=== PATIENT | female | born 1960 | race Caucasian/White ===

== ENCOUNTER 2023-03-16 17:02 | Emergency (ER) | payer MEDICARE, MEDICAID, SELFPAY ==
--- NOTE | ~2023-03-16 | CT_ITS ---
EXAMINATION: CT CHEST WITHOUT CONTRAST CLINICAL INFORMATION: History of tobacco abuse. Unexplained weight loss. COMPARISON: None available. TECHNIQUE: Multidetector volumetric CT imaging of the chest was done. Axial MIP volume rendering provided. Sagittal and coronal reformatted images were obtained. This CT examination was performed using dose optimization techniques as appropriate, variously including the following: *Automated exposure control *Adjustment of mA and/or kV according to patient size (this includes techniques or standardized protocols for targeted exams where dose is matched to indication/reason for exam; i.e. extremities or head) *Use of iterative reconstruction technique DLP: 112 mGy-cm FINDINGS: LUNGS: Moderate to marked centrilobular emphysema. 4 mm nodule right upper lobe on image 185 of series 9. 3 mm subpleural nodule left upper lobe on image 176 of series 9. 1.3 x 1.4 cm circumscribed nodule in the left lower lobe on image 386 of series 9. There is intralesional fat possibly representing hamartoma. No focal consolidation. Central airways are patent. MEDIASTINUM: Imaged thyroid gland is heterogeneous. No bulky mediastinal or hilar. Ascending thoracic aorta measures 3.2 x 3.3 cm transaxially. Heart size is normal. No pericardial effusion. CORONARY ARTERY CALCIFICATION: Mild. PLEURA: There is no pleural effusion. No pleural mass or thickening. AXILLA: No lymphadenopathy. UPPER ABDOMEN: Nonobstructing bilateral renal calculi. OSSEOUS STRUCTURES: No destructive bone lesions. CT/CT chest wo IV con IMPRESSION: Few pulmonary nodules measuring up to 4 mm. Follow-up chest CT in 12 months should be considered. 1.3 x 1.4 cm pulmonary nodule in the left lower lobe containing fat possibly representing a hamartoma. Nonobstructing bilateral renal calculi.
[2023-03-16 17:07] VITALS: BP 140/100; PULSE 120; RESP 16; TEMP 36.9; O2SAT 98; BMI 18.3
--- NOTE | 2023-03-16 17:09 | ED_ITS ---
HPI - General Adult General Chief complaint: Psychiatric Symptoms Stated complaint: physch evaluation Time Seen by Provider: 03/16/23 17:21 Source: patient Mode of arrival: ambulatory Limitations: no limitations History of Present Illness HPI narrative: Patient is a 62-year-old female who presents emergency department with her brother for evaluation. She reports that her brother came to her home today and she was expressing her frustrations. She reports ?I feel sick and my head? she says this repetitively, stating that she ?can not deal with the banging anymore? referring to the neighbor's above her evidently banging on the ceiling constantly throughout the day. It seems as though she is exhausted of this. When asked she states she has not particularly having any headache, discomfort, or otherwise concerning symptoms. She does report a mental health history, having been ?committed in the past, evidently in the 1980s. Her brother expressed concern that she has not eating not taking care of herself. When asked patient states she has been eating only soft foods because her bottom dentures recently broke and she does not have an appointment for their repair until another 2 weeks. She denies suicidal or homicidal ideations. Related Data Home Medications Medication Instructions Recorded Confirmed No Known Home Meds 03/18/23 03/18/23 Allergies Allergy/AdvReac Type Severity Reaction Status Date / Time No Known Allergies Allergy Verified 03/16/23 17:15 Review of Systems 2 Review of Systems: Yes all other systems are reviewed and are negative PMF Past Medical History Attestation statement: The following information was validated with the patient. Source: old records reviewed Social History Social History Smoked in Last 30 Days: Yes Use of substances other than those prescribed or required for medical reasons: No Advance Directives: No Advance Directives Information Provided: No Healthcare Proxy: No Guardian: No Patient : No Physical Exam ED Vital Signs: Vital Signs - 24 hr 03/20/23 06:37 Temperature 98.0 F Pulse Rate 77 Respiratory Rate 17 Blood Pressure 90/65 Pulse Oximetry 98 Oxygen Delivery Method Room Air BMI result Body Mass Index 18.3 Appearance: Alert.?Oriented to person, place and time. Frail older woman. No acute distress.?Normal affect. Eyes: Pupils equal, round and reactive to light.? ENT: Pharynx normal.?? Neck: Normal inspection.? Neck supple.?? CVS: Heart sounds normal. Normal heart rate and rhythm.? Pulses normal.?? Respiratory: No respiratory distress.? Lung sounds clear to auscultation bilaterally?? Abdomen: Soft and non-tender. Normoactive bowel sounds. No pulsatile mass.?? Skin: Skin warm and dry.? Normal skin color.? Normal skin turgor.?? Extremities: No lower extremity edema.? No calf ttp? Neuro: Moves all extremities spontaneously. Sensation intact bilaterally. CN II- XII intact. No focal neuro deficits. Ambulates with normal steady gait. Course Course Course Narrative: RME- 62 year old female presents for evaluation of fell sick in my head. She is a very poor historian. She is not having any headaches. She is not depressed or suicidal. She repeatedly states that she doesn't want to go back home because I can't deal with the banging from all the people above my apartment. Per the patient's brother, the patient is not eating, not taking care of herself. Plan for medical workup and likely care team evaluation Reevaluation(s) Reevaluation #1: CBC is without leukocytosis or anemia, overall unremarkable CMP. Urinalysis without compelling evidence for infection. Toxicology negative. Placed in physician observation so that care team evaluation can consumed determination as to whether inpatient psychiatric services are required at this time. Calm and cooperative. Vital signs stable. Reevaluation #2: Patient was seen by care team and psychiatric nurse practitioner Allison Freitas- with question if patient has capacity to refuse treatment. I did reconsult Psychiatry to make a formal capacity judgment on this patient. Care team also requested case management evaluation to determine possible outpatient services. Time: 18:39 Reevaluation #3: Continue physician observation, no acute events overnight Time: 07:30 Consultations Consultation #1: VSS, no issues reported by nursing overnight, psych input was reviewed and appreciated, waiting for case management for possible placement today, question of patient is have the capacity to refuse treatment to be determined by psych. Time: 07:23 Medications Administered Generic Name Dose Route Start Last Admin Trade Name Freq PRN Reason Stop Dose Admin Cefuroxime Axetil 250 mg 03/17/23 21:00 03/19/23 21:44 Cefuroxime Axetil 250 Mg Tablet PO 03/22/23 09:01 250 mg BID JAYLENE Administration Discontinued Medications Generic Name Dose Route Start Last Admin Trade Name Freq PRN Reason Stop Dose Admin Polyethylene Glycol 17 gm 03/17/23 07:31 03/17/23 13:48 Polyethylene Glycol 3350 17 Gm Powd.Pack PO 03/17/23 07:32 17 gm ONCE ONE Administration Medical Decision Making Medical Decision Making [facility] Narrative: Patient is a 62-year-old female who presents to the emergency department expressing frustration and anger neighbor's upstairs from her producing constant banging on her ceiling, she does seem under significant distress regarding this. She denies any SI/HI, but she is hyper fixated on this. Further express concerns that she has not eating and hearing for herself, she is a frail older woman, she states she has been eating last/soft since dentures ibuprofen recently she does not feel as though she is intentionally depriving herself from food.. Enter obtain basic labs for medical clearance, and will refer patient to CARE team for evaluation Differential Diagnosis Differential Diagnoses: The differential diagnosis associated with the presentation includes (Anxiety, depression, anorexia) Admission/Observation Consideration of admission/observation: Escalation of care including admission/observation considered (See narrative above) Lab Data [facility] Lab Attestation statement: I reviewed the patient's lab results. (See course narrative) 03/16/23 18:01 03/16/23 18:01 Labs: Lab Results 03/16/23 03/16/23 03/17/23 Range/Units 17:52 18:01 19:02 WBC 9.7 (4.8-10.8) X10*3/uL RBC 5.08 (4.20-5.50) X10*6/uL Hgb 15.7 (12.0-16.0) g/dl Hct 46.6 (37.0-47.0) % MCV 91.7 (80.0-98.0) fL MCH 30.9 (27.0-33.0) pg MCHC 33.7 (31.0-35.0) g/dl RDW 12.8 (11.0-16.0) % Plt Count 359 (160-400) X10*3/uL MPV 8.5 L (9.4-12.3) fL Immature Gran % (Auto) 0.5 H (0.0-0.4) % Neut % (Auto) 61.6 (45-73) % Lymph % (Auto) 28.9 (20-40) % [place] % (Auto) 7.6 (2-11) % Eos % (Auto) 0.9 (0-4) % Baso % (Auto) 0.5 (0-2) % Lymph # (Auto) 2.8 (1.2-4.9) X10*3/uL [place] # (Auto) 0.7 (0.1-1.2) X10*3/uL Eos # (Auto) 0.1 (0.0-0.4) X10*3/uL Baso # (Auto) 0.1 (0.0-0.2) X10*3/uL Abs Immat Gran (auto) 0.05 H (0.00-0.03) X10*3/uL Absolute Neuts (auto) 6.0 (2.0-8.3) x10*3/uL Absolute Nucleated RBC 0.000 (0.0-0.012) X10*3/uL Nucleated RBC % (auto) 0.0 (0.0-0.2) /100WBC Sodium 139 (135-145) mmol/L Potassium 4.3 (3.3-5.1) mmol/L Chloride 103 (96-108) mmol/L Carbon Dioxide 26 (22-29) mmol/L Anion Gap 14 (12-20) BUN 17 H (9-16) mg/dL Creatinine 0.75 (0.5-1.4) mg/dL Estim Creat Clear Calc 54.9 Estimated GFR > 60 Random Glucose 103 (60-115) mg/dL Estimat Average Glucose 108 mg/dL Hemoglobin A1c % 5.4 (<6.0) % Calcium 9.9 (8.4-10.2) mg/dL Total Bilirubin 0.3 (0.0-1.0) mg/dL AST 15 (5-31) U/L ALT 10 (0-31) U/L Alkaline Phosphatase 84 (39-117) U/L Total Protein 8.1 H (6.5-8.0) g/dL Albumin 4.7 (3.5-5.0) g/dL Vitamin B12 306 (200-900) pg/mL Folate 5.5 (> or = 4.0) ng/mL TSH 0.99 (0.32-4.0) uIU/mL Urine Color Yellow Urine Appearance Cloudy Urine pH 5.5 (5.0-9.0) Ur Specific [place] 1.025 (1.005-1.025) Urine Protein Trace (Neg-Trace) mg/dL Urine Glucose (UA) 250 H (Negative) mg/dL Urine Ketones Negative (Negative) mg/dL Urine Blood Trace H (Negative) Urine Nitrite Negative (Negative) Ur Leukocyte Esterase Small (1+) H (Negative) Urine RBC 3-5 H (0-2) /HPF Urine WBC 11-20 H (0-5) /HPF Ur Squamous Epith Cells 6-10 (0-2) /HPF Urine Bacteria None Seen (None Seen) Hyaline Casts 0-2 (0-2) /LPF Salicylates < 5.0 L (15-30) mg/dL Urine Opiates Screen Not Detected (Not Detect) Urine Fentanyl Screen Not Detected (Not Detect) Acetaminophen < 3 (<30) mcg/mL Ur Barbiturates Screen Not Detected (Not Detect) Ur Phencyclidine Scrn Not Detected (Not Detect) Ur Amphetamines Screen Not Detected (Not Detect) U Benzodiazepines Scrn Not Detected (Not Detect) Urine Cocaine Screen Not Detected (Not Detect) U Marijuana (THC) Screen Not Detected (Not Detect) Ethyl Alcohol < 10 mg/dL COVID-19 (ANGELA) Negative (Negative) COVID-19 Clin Com See Note Independent Historian Clinical information obtained from an independent historian. History obtained from or confirmed by: Other (Brother who confirms history) Discharge Plan Discharge Clinical Impression: Depression, Acute anxiety Patient Disposition: Still a Patient Prescriptions: No Action No Known Home Meds Interventions: [place]-Suicide Risk Severity Scale Last Done: 03/19/23 14:32
--- NOTE | 2023-03-16 17:48 | PC.NURSE ---
PT arrived to POD, changed over, urine provided, lab draw to follow. JOHN at bedside. Plan of care ongoing.
[2023-03-16 18:09] LABS: MANUAL DIFF FLAG NO
[2023-03-16 18:10] VITALS: BP 109/87; PULSE 93; RESP 13; TEMP 36.6; O2SAT 96
[2023-03-16 18:18] LABS: Basophils Absolute Auto 0.1 X10*3/uL (0.0-0.2); Basophils Percent Auto 0.5 % (0-2); Eosinophils Absolute Auto 0.1 X10*3/uL (0.0-0.4); Eosinophils Percent Auto 0.9 % (0-4); Hematocrit 46.6 % (37.0-47.0); Hemoglobin 15.7 g/dl (12.0-16.0); Imm Gran Abs Auto 0.05 X10*3/uL (0.00-0.03); Imm Gran Pct Auto 0.5 % (0.0-0.4); Lymphocytes Absolute Auto 2.8 X10*3/uL (1.2-4.9); Lymphocytes Percent Auto 28.9 % (20-40); Mean Corpuscular HGB Conc 33.7 g/dl (31.0-35.0); Mean Corpuscular Hemoglobin 30.9 pg (27.0-33.0); Mean Corpuscular Volume 91.7 fL (80.0-98.0); Mean Platelet Volume 8.5 fL (9.4-12.3); Monocytes Absolute Auto 0.7 X10*3/uL (0.1-1.2); Monocytes Percent Auto 7.6 % (2-11); Neutrophils Percent Auto 61.6 % (45-73); Platelet Count 359 X10*3/uL (160-400); Red Blood Count 5.08 X10*6/uL (4.20-5.50); Red Cell Distribution Width 12.8 % (11.0-16.0); White Blood Count 9.7 X10*3/uL (4.8-10.8)
[2023-03-16 18:21] LABS: Appearance Urine Cloudy; Bacteria Urine None Seen (None Seen); Color Urine Yellow; Glucose Urine UA 250 mg/dL (Negative); Hyaline Casts Urine 0-2 /LPF (0-2); Leukocyte Esterase Urine Small (1+) (Negative); Nitrite Urine Negative (Negative); PH 5.5 (5.0-9.0); Specific Gravity - Urine 1.025 (1.005-1.025); UACC Culture Trigger YES; UMIC TRIGGER UACC YES; Urine Blood Trace (Negative); Urine Ketones Negative (Negative); Urine Protein Trace mg/dL (Neg-Trace)
[2023-03-16 18:22] LABS: Amphetamine Screen Urine Not Detected (Not Detect); Barbiturates, Urine Not Detected (Not Detect); Benzodiazepines Screen Urine Not Detected (Not Detect); Cannabinoid Screen Urine Not Detected (Not Detect); Cocaine Screen Urine Not Detected (Not Detect); Fentanyl, urine Not Detected (Not Detect); Opiate Screen Urine Not Detected (Not Detect); Phencyclidine Screen Urine Not Detected (Not Detect)
[2023-03-16 18:31] LABS: Acetaminophen LAB < 3 mcg/mL (<30); Alanine Aminotransferase 10 U/L (0-31); Albumin Level 4.7 g/dL (3.5-5.0); Alkaline Phosphatase 84 U/L (39-117); Anion Gap 14 (12-20); Aspartate Amino Transferase 15 U/L (5-31); Bilirubin Total 0.3 mg/dL (0.0-1.0); Blood Urea Nitrogen 17 mg/dL (9-16); Calcium 9.9 mg/dL (8.4-10.2); Carbon Dioxide 26 mmol/L (22-29); Chloride 103 mmol/L (96-108); Creatinine Clr Calc Pharmacy 54.9; Estimated Glomerular Filt Rate > 60; Ethanol < 10 mg/dL; Glucose Random 103 mg/dL (60-115); Potassium 4.3 mmol/L (3.3-5.1); Salicylate < 5.0 mg/dL (15-30); Sodium 139 mmol/L (135-145); Total Protein 8.1 g/dL (6.5-8.0)
[2023-03-16 18:41] LABS: COVID-19 Test Negative (Negative); IDNOW Serial# 08D9AD1C
--- NOTE | 2023-03-16 19:09 | PC.NURSE ---
patient appears to remain at rest at present respirations are even and unlabored patient appears in no distress
--- NOTE | 2023-03-16 22:33 | MHC.CARE ---
Pt's brother called (Toi; [phone]) and reports that he brought her to [facility] out of concern over her weight loss. He reports that Pt is normally taken care of by her sister, Sugey, however Sugey was recently diagnosed with cancer and is undergoing treatment. Toi recently moved from [place] to help out with the Pt. He reports that Pt was dianoised with Schizophrenia about 40 years ago when she was inpatient at a hospital in [place]. He reports that Pt does not take medications and has no risk hx or prior attempts and does not use substances or have a hx of use. He reports that she has seemed depressed recently.
--- NOTE | 2023-03-17 | ECG_ITS ---
Test Reason : QT INTERVAL Blood Pressure : / mmHG Vent. Rate : 057 BPM Atrial Rate : 057 BPM P-R Int : 136 ms QRS Dur : 068 ms QT Int : 434 ms P-R-T Axes : 083 058 084 degrees QTc Int : 422 ms Sinus bradycardia Low voltage QRS Septal infarct , age undetermined Abnormal ECG No previous ECGs available Referred By: Allison Freitas Electronically Signed By:BJ FRIAS MD
[2023-03-17 06:02] VITALS: BP 96/69; PULSE 84; RESP 15; TEMP 37.1; O2SAT 98
--- NOTE | 2023-03-17 06:24 | PC.NURSE ---
PT UP TO BR. NO C/O
--- NOTE | 2023-03-17 08:13 | PC.NURSE ---
CARE team at bedside.
--- NOTE | 2023-03-17 08:52 | MHC.CARE ---
Pt's brother, Luis, reports he and his sister Maira are questioning patient's ability to care for herself fully and would like psychiatry to meet with patient. Consult for psychiatry created.
[2023-03-17] MEDS: polyethylene glycoL 3350 17 GM POWD.PACK PO (13:48)
--- NOTE | 2023-03-17 15:08 | PM.PSYCN ---
History of Present Illness Date of Service: 03/17/2023 Chief Complaint: paranoia Reason for Consult: paranoia Discussed with referring provider: Yes Sources of Information: patient interviewed, chart reviewed and crisis/core team assessment reviewed HPI Narrative: Ms. Witt is a 62 year-old woman with hx of schizophrenia. Pt was brought by brother who was concern about pt's weight loss and paranoia. Pt has reported that upstairs neighbors are banging the wall, making sounds and she worries that they are making her sick. In the ED, cbc wnl, CMP with no electrolytes abnormalities. BUN 17, Cr 0.74, creatinine clearance 54.9. UA with glucose, trace of blood, leukocytes, RBC and WBC. Head CT not completed. Pt appears much older than her age. She also presents as malnourished. She reports she has had constipation but does not know since when. This race and sports book writer asked if we could do KUB r/o obstruction but also to assess severity as pt appears unreliable general assignment reporter but she declines. She reports she is not sure she can trust neighbors and believes they are making her sick in physical way, not limited by effects of loud sounds. She reports maybe her skin or her head has been affected by it. She denies SI/HI. When asked if she thinks she needs any help, she states only a cigarette and I can go home. She does not appear concern as her brother about weight loss. She has been mostly in her room. Past Psychiatric History: Inpt: several years at [facility] OP: none Past medication trials: unknown Diagnostics Vital Signs (24Hr): Vital Signs - 24 hr 03/16/23 17:07 03/16/23 18:10 03/17/23 06:02 Temperature 98.5 F 97.9 F 98.8 F Pulse Rate 120 H 93 84 Respiratory Rate 16 13 15 Blood Pressure 140/100 H 109/87 96/69 Pulse Oximetry 98 96 98 Oxygen Delivery Method Room Air Room Air Room Air BMI result Body Mass Index 18.3 Labs 03/16/23 18:01 03/16/23 18:01 Labs: Laboratory Results - last 48 hr 03/16/23 03/16/23 17:52 18:01 WBC 9.7 RBC 5.08 Hgb 15.7 Hct 46.6 MCV 91.7 MCH 30.9 MCHC 33.7 RDW 12.8 Plt Count 359 MPV 8.5 L Immature Gran % (Auto) 0.5 H Neut % (Auto) 61.6 Lymph % (Auto) 28.9 [place] % (Auto) 7.6 Eos % (Auto) 0.9 Baso % (Auto) 0.5 Lymph # (Auto) 2.8 [place] # (Auto) 0.7 Eos # (Auto) 0.1 Baso # (Auto) 0.1 Abs Immat Gran (auto) 0.05 H Absolute Neuts (auto) 6.0 Absolute Nucleated RBC 0.000 Nucleated RBC % (auto) 0.0 Sodium 139 Potassium 4.3 Chloride 103 Carbon Dioxide 26 Anion Gap 14 BUN 17 H Creatinine 0.75 Estim Creat Clear Calc 54.9 Estimated GFR > 60 Random Glucose 103 Calcium 9.9 Total Bilirubin 0.3 AST 15 ALT 10 Alkaline Phosphatase 84 Total Protein 8.1 H Albumin 4.7 Urine Color Yellow Urine Appearance Cloudy Urine pH 5.5 Ur Specific [place] 1.025 Urine Protein Trace Urine Glucose (UA) 250 H Urine Ketones Negative Urine Blood Trace H Urine Nitrite Negative Ur Leukocyte Esterase Small (1+) H Urine RBC 3-5 H Urine WBC 11-20 H Ur Squamous Epith Cells 6-10 Urine Bacteria None Seen Hyaline Casts 0-2 Salicylates < 5.0 L Urine Opiates Screen Not Detected Urine Fentanyl Screen Not Detected Acetaminophen < 3 Ur Barbiturates Screen Not Detected Ur Phencyclidine Scrn Not Detected Ur Amphetamines Screen Not Detected U Benzodiazepines Scrn Not Detected Urine Cocaine Screen Not Detected U Marijuana (THC) Screen Not Detected Ethyl Alcohol < 10 COVID-19 (ANGELA) Negative COVID-19 Clin Com See Note Mental Status Exam Mental Status Exam Narrative: Appearance: unkempt, much older than stated age,malnourished, in NAD Behavior: superficially cooperative Speech: mostly clear, mild delayed in responses, spontaneous TP: goal oriented- wanting to go home TC: wanting a cigaret and wanting to go home Mood: okay Affect: constricted, but congruent SI: denies HI: denies VH/AH: AH of neighbors Delusions: some paranoid delusions Insight/judgment: impaired x 2. Memory/cog: alert, oriented to place, not formally tested, may benefit from MOCA and ACL Medications Allergies Allergies Allergy/AdvReac Type Severity Reaction Status Date / Time No Known Allergies Allergy Verified 03/16/23 17:15 Assessment & Plan Assessment & Plan (1) Schizophrenia: Status: Acute Code(s): F20.9 - Schizophrenia, unspecified Plan Ms. Witt is a 62 year-old woman with hx of schizophrenia who was brought in by brother who was concern in terms of weight loss and paranoia. Pt reports some mistrust about her neighrbors and believes that they banging the wall has caused internal damage to herself. She reports constipation, but due to fact that she is a poor historian, this race and sports book writer asked if we could do KUB which she declines. UA seems to be suggestive of UTI. Pt with limited insight into concern regarding her weight loss. Pending collateral information from brother to get better sense as to pt's ability to care for herself. I would suggest to assess pt's ability to care for herself- including but not limited MOCA, ACL, further clarification of current living situation. Pt does not appear to have capacity to make medical decisions. Total time managing care of this patient today ____ minutes. Patient educated on: diagnosis Informed Consent: understands
--- NOTE | 2023-03-17 18:36 | MHC.CARE ---
Box Spinner spoke with ED Attending Dr. Parks to request CM Consult. Consult placed
[2023-03-17 19:41] LABS: TSH reflex Free T4 0.99 uIU/mL (0.32-4.0)
[2023-03-17 19:55] LABS: Folate 5.5 ng/mL (> or = 4.0); Vitamin B12 306 pg/mL (200-900)
--- NOTE | 2023-03-17 21:23 | MHC.CM.ED ---
Addendum entered by Michelle Montoya 03/17/23 22:28: Brother, Luis states that patient always locks her doors and smokes outside. Addendum entered by Michelle Montoya 03/17/23 22:15: CM spoke with brother, Luis. He tells CM that he is very concerned that his sister is not eating, has little food in her refrigerator and basically canned goods. She refuses to have a microwave or TV, but seems okay with those choices. States she misses her cat and their other brother, who passed in 2014 and who his sister was very close with. Luis tells CM that his sister has been very withdrawn over that past 4 months or so. The patient has withdrawn from family visiting and family dinners. He also thinks his sister Maira's illness is affecting his sister. Luis tells CM that his sister is safe at home. Has a neighbor who checks in on her. Luis tells CM that he and his sister, Maira, have always paid the bills for the patient. His major concern is her weight loss. Both Maira and Luis are aware of the capacity review with psych and with the pending MOCA and ACL. They are in agreement that if their sister goes home, they will help her, but she needs more services: PCP, [facility], [facility] and outpatient psych services. CM will wait for repeat capacity, MOCA and ACL before arranging any home services. CM expects that patient will remain in ED over the weekend atleast. Addendum entered by Michelle Montoya 03/17/23 22:04: CM spoke with sister Maira. Maira tells CM that her sister lived with her mother until her mother's in 2001. Since then, Gemma has been living in her current address with family assistance. Maira tells CM that her sister was diagnosed with schizophrenia. She takes no medications, and does not have a PCP. Maira confirms her sister's intake information. Also shares that she has no services or psych services. Maira shared that she has been diagnosed with cancer and is undergoing another biospy next week. She thinks this is affecting her sister. Also, her sister's cat about a year ago, and it was a big loss for her/ Maira thinks her sister is safe at home, but is concerned that she is not eating properly. State her sister only goes to [employer], so her food intake/choices are poor. Addendum entered by Michelle Montoya 03/17/23 21:58: Brother, Luis ([phone]) both help her. Pt does not take any medications and does not have a PCP or put patient psych services. Pt feels safe at home. States she can cook and can walk to grocery store. Pt is aware that additional testing will be done to see how well she can care for herself and live independently. Discussed HCP with patient. She would like her sister. CM will wait to hear if patient has capacity to make decisions. Permission given to speak with both Maira and with Luis. Original Note: CM spoke with Dr. Parks with regards to this patient. MD has re-consulted psych for capacity. Also ordered MOCA and ACL from OT. CM met with patient in [facility]. Pt tells CM that the banging noise from her neighbors is making her sick. Pt state she lives alone, and has no services. States she can walk to store for food and can cook. Does not drive. She tells CM that her sister, Maira ([phone])
[2023-03-17] MEDS: cefuroxime axetiL 250 MG TABLET PO (21:56)
[2023-03-17 21:57] VITALS: BP 93/63; PULSE 76; RESP 17; TEMP 36.6; O2SAT 97
[2023-03-18 04:01] LABS: Estimated Average Glucose 108 mg/dL; Hemoglobin A1c % 5.4 % (<6.0)
[2023-03-18] MEDS: cefuroxime axetiL 250 MG TABLET PO ×2 (09:14→20:29)
--- NOTE | 2023-03-18 18:25 | PC.NURSE ---
Gemma was OOB this morning and engaging with staff. She took a shower and is ambulating well. Appetite is good. No behavioral concerns. Gemma denies SI/HI/AVH.
--- NOTE | 2023-03-18 19:18 | PC.NURSE ---
patient appears to remain at rest at present respirations are even and unlabored patient appears in no distress.
[2023-03-19 06:41] VITALS: BP 97/70; PULSE 86; RESP 16; TEMP 36.5; O2SAT 94
[2023-03-19] MEDS: cefuroxime axetiL 250 MG TABLET PO ×2 (08:26→21:44)
--- NOTE | 2023-03-19 16:53 | PC.NURSE ---
Gemma in her bed resting quietly. Adherent with her AM antibiotic. No behavioral concerns. Ambulates with a steady gait. Appetite fair.
[2023-03-20 06:37] VITALS: BP 90/65; PULSE 77; RESP 17; TEMP 36.7; O2SAT 98
[2023-03-20] MEDS: cefuroxime axetiL 250 MG TABLET PO ×2 (10:04→20:53)
[2023-03-20 11:37] VITALS: BP 105/72; PULSE 80; RESP 20; TEMP 37.1; O2SAT 99
--- NOTE | 2023-03-20 14:40 | MHC.CM.ED ---
Patient remains in ER BH Pod. MOCA completed: . Allison, case briefer aware. Continue to monitor for d/c needs.
--- NOTE | 2023-03-20 15:05 | PC.NURSE ---
Pt has had uneventful day thus far, calm and cooperative, calling her sister and brother. Report given to overflow
[2023-03-20 15:41] VITALS: BP 118/76; PULSE 88; RESP 16; TEMP 36.4; O2SAT 97
--- NOTE | 2023-03-20 17:22 | PC.NURSE ---
Pt in room resting quietly, supper given, pt denies pain, vss.
[2023-03-20 20:12] VITALS: BP 100/73; PULSE 89; RESP 20; TEMP 36.4; O2SAT 97
--- NOTE | 2023-03-20 21:10 | PC.NURSE ---
Patient is resting in a hospital bed, calm and cooperative, VSS. Patient denies any pain. Patient medicated with Ceftin 250 mg PO, tolerating antibiotic tx without adverse reactions. Call wallace placed within patient's reach. Plan of care ongoing.
--- NOTE | 2023-03-20 22:20 | MHC.CM.ED ---
MOCA . CM Spoke with Idalia Veronica from CARE team about need to collaborate with them regarding patient outpatient psych needs at discharge. Will speak with Allison psychiatric tech 03/21 regarding assessment of capacity with MOCA of and possible medication needs for patient at discharge ? medications for depression/anxiety. Will then need to speak with family about ability to care for patient at home. Siblings have been caring for patient since 2001. Patient has been living independently with family supports. CM following for discharge needs.
[2023-03-21 05:26] VITALS: BP 100/72; PULSE 69; RESP 18; TEMP 36.9; O2SAT 99
[2023-03-21] MEDS: cefuroxime axetiL 250 MG TABLET PO ×2 (07:41→19:40)
--- NOTE | 2023-03-21 07:50 | PC.NURSE ---
Assumed care of this pt at 0700. Pt alert and oriented, she denies pain, vss, Breakfast given, med given as documented.
[2023-03-21 07:56] VITALS: BP 105/76; PULSE 80; RESP 14; TEMP 36.2; O2SAT 97
--- NOTE | 2023-03-21 08:27 | PHA.MEDREC ---
Pharmacy Consult ? Medication Reconciliation Pharmacy has completed the medication reconciliation with the patient. No claims present and patient confirms no medication use at home.
--- NOTE | 2023-03-21 12:02 | MHC.CM.ED ---
Addendum entered by Risa Vargas 03/21/23 13:28: Physical therapy is recommended home with services. Patient does not have a PCP. Home services will not be able to be arranged due to this. Short term rehab is necessary at this time in order to have patient be able to safely return home. Will need [facility] Level 2. T/W will submit for this. Original Note: Patient remains in ER overflow. Per Allison community associate, patient is cleared for d/c. Spoke with patient's brother, Luis, via telephone at [phone]. Luis is concerned about patient being weak and needing short term rehab. Physical therapy eval ordered and pending. Information on primary care providers and outpatient mental health follow up provided to Luis. Continue to monitor for d/c needs.
[2023-03-21 12:50] VITALS: BP 105/76; PULSE 80; O2SAT 97
--- NOTE | 2023-03-21 14:50 | MHC.CM.ED ---
Addendum entered by Risa Vargas 03/21/23 15:54: Received return telephone call from Luis. He will speak to patient about going to short term rehab. Original Note: Met with patient in regards to discharge planning. Patient is not sure she wants to go to STR. Patient also unwilling to sign HCP at this time. Attempted to update patient's brother, Luis, via telephone at [phone]. Left message requesting return telephone call.
--- NOTE | 2023-03-21 16:16 | PC.NURSE ---
Pt's brother and sister called to speak with her. She spoke briefly with her sister then hung up on her. She did not get on the phone to speak with her brother. Stated I don't feel like talking to him now maybe later . Pt resting quietly in her room at this time.
[2023-03-21 21:07] VITALS: BP 99/63; PULSE 90; RESP 18; TEMP 37; O2SAT 97
--- NOTE | 2023-03-21 22:08 | MHC.CM.ED ---
CM met with patient about 1630 tonight. PT is recommending home PT, but patient does not have a PCP, so it cannot be arranged. Brother would like her to go to STR. Referrals had been placed, with [facility] considering. Pt is adamant that she will not go to rehab. She wants to go home. States she walks fine. Pt also refused, politely to complete a HCP. CM spoke with patient about having some services at home. Pt is not really comfortable with having help in home. Pt may agree to [facility] with [facility]. Brother, Luis is aware that he would be contact acid plant operator helper. Also aware that she will be discharged home tomorrow. That a referral has been placed with [facility] (task) and that CM will give him a PCP list. Encouraged him to call for an appointment and to bring her. She has a dentist appointment on 03/27 to have her dentures repaired. Luis also aware that the CARE team will make a referral to [facility] tomorrow for outpatient psych services. Luis will be in about 9am tomorrow to try and convince his sister to go to STR, because he feels she is weak. CM explained that physical therapy did not recommend STR, but she cannot have home services d/t her lack of PCP. Luis understands that if his sister refuses STR, he cannot make her go. Luis is aware that she will be discharged home, unless he refuses to help her in the community with PCP, dentist, groceries and bill paying. Luis admits to CM that he will not refuse to care for her, but is a bit frustrated with her constant calling him. CM spoke with Luis about setting limits and remembering that his sister is mentally ill, but stable, and has been cared for by family for her entire life. CM will follow for discharge needs.
--- NOTE | 2023-03-22 01:21 | PC.NURSE ---
Took report from off-going RN at 2300 hours. Pt is a 62 y/o female who is here for ? failure to thrive, been here since Feb 13 from home. Pt is pleasant and cooperative with staff. No acute distress noted at shift change. Skin is W/P/D. Pt is independent with ambulation, uses the bathroom as desired. Vebalizes needs appropriately. Presently being treated with PO ceftine for a UTI. Prior to shift change, reported some symptoms of constipation, but declined any medications with RN. Independent with decision-making and plan is possible discharge home in the morning. Will continue to monitor.
--- NOTE | 2023-03-22 02:43 | PC.NURSE ---
Pt is sleeping in left lateral recumbent position, appears comfortable. No acute distress observed. Changes positions independently as desired. Easily arousable with verbal stimuli. Makes needs known appropriately. Will continue to monitor.
--- NOTE | 2023-03-22 04:49 | PC.NURSE ---
Pt is sleeping in right lateral recumbent position, appears comfortable. No acute distress noted and RR is regular depth and pattern. Will continue to monitor.
[2023-03-22 06:00] VITALS: BP 85/64; PULSE 78; RESP 18; TEMP 37; O2SAT 96
[2023-03-22 07:09] VITALS: BP 100/65; PULSE 64; RESP 18; O2SAT 95
[2023-03-22] MEDS: cefuroxime axetiL 250 MG TABLET PO (07:36)
--- NOTE | 2023-03-22 10:55 | MHC.CARE ---
RAD Team completed a referral to [facility] for outpatient therapy and a medication prescriber. RAD will follow up tomorrow 03/23/23 to confirm receipt.
--- NOTE | 2023-03-22 11:41 | MHC.CM.ED ---
Patient remains in ER overflow. Patient's brother, Luis, bedside to try to convince patient to go to STR. Patient is still declining STR. List of PCP's provided to Luis. Luis will have to return later this afternoon to transport patient home. Patient requesting Chair phillip. Chair phillip booked for 1130am. Patient, Miryam Smith RN and Melissa THEODORE aware. Continue to monitor for d/c needs.
== END 2023-03-22 11:38 | disposition still patient (30) ==
PROVIDERS: Nurse Practitioner Family; Physician Assistant; Social Worker; Emergency Provider Emergency Medicine Emergency Medical Services
DX: F32.A Depression, unspecified (principal); F41.9 Anxiety disorder, unspecified; F20.9 Schizophrenia, unspecified; R63.6 Underweight; Z68.1 Body mass index [BMI] 19.9 or less, adult; Z11.52 Encounter for screening for COVID-19; Z72.89 Other problems related to lifestyle; Z59.2 Discord with neighbors, lodgers and landlord; R91.8 Other nonspecific abnormal finding of lung field; N20.0 Calculus of kidney; R00.1 Bradycardia, unspecified
CPT/HCPCS: 36415; 71250; 80053; 80143; 80179; 80307; 81001; 82607; 82746; 83036; 84443; 85025; 87086; 87635; 93005; 97161; 97165; 99285; S9485

== ENCOUNTER → 2023-03-16 20:17 | Outpatient (BNV) | payer MEDICARE, MEDICAID, SELFPAY | PROVIDERS: Emergency Provider Student in an Organized Health Care Education/Training Program; Visit Provider Social Worker | DX: F20.9 Schizophrenia, unspecified (principal) | CPT/HCPCS: 99285 ==

== ENCOUNTER → 2023-03-17 18:08 | Outpatient (BNV) | payer MEDICARE, MEDICAID, SELFPAY | PROVIDERS: Emergency Provider Emergency Medicine Emergency Medical Services; Visit Provider Internal Medicine Cardiovascular Disease | DX: R00.1 Bradycardia, unspecified (principal); R94.31 Abnormal electrocardiogram [ECG] [EKG] | CPT/HCPCS: 93010 ==

== ENCOUNTER 2023-04-23 06:56 | Emergency (ER) | payer MEDICARE, MEDICAID, SELFPAY ==
--- NOTE | ~2023-04-23 | CT_ITS ---
EXAMINATION: CT HEAD WITHOUT CONTRAST CLINICAL INFORMATION: Fall from sitting head strike COMPARISON: None TECHNIQUE: Contiguous axial imaging was performed from the skull base to vertex without intravenous administration of contrast. This CT examination was performed using dose optimization techniques as appropriate, variously including the following: *Automated exposure control *Adjustment of mA and/or kV according to patient size (this includes techniques or standardized protocols for targeted exams where dose is matched to indication/reason for exam; i.e. extremities or head) *Use of iterative reconstruction technique DLP: 778 mGy-cm FINDINGS: There is no evidence of acute intracranial hemorrhage or territorial infarction. Chronic white matter small vessel ischemic changes. Cerebral atrophy. No abnormal mass effect or midline shift is seen. Gar to white matter differentiation is well preserved. No extra-axial fluid collections are identified. The ventricles are normal in size. There is no abnormal attenuation within the brain parenchyma. The osseous structures and soft tissues are normal. The mastoid air cells and visualized portions of the paranasal sinuses are well aerated. CT/CT cervical spine wo IV con IMPRESSION: 1. No acute intracranial pathology. 2. Chronic white matter small vessel ischemic changes. EXAMINATION: Noncontrast CT scan of the cervical spine. INDICATION: Fall COMPARISON: None. TECHNIQUE: Helical, multidetector axial images were obtained from the occiput to the upper thorax. Coronal and sagittal reformats of the cervical spine were provided for interpretation. DLP: 778 mGy-cm FINDINGS: No acute fractures or dislocations of the cervical spine are seen. Grade 1-2 anterolisthesis of C3 on C4. Grade 1 anterolisthesis of C4 on C5 and C7 on T1. Grade 1 retrolisthesis of C5 on C6. Multilevel degenerative changes. Anatomic alignment and positioning of the vertebral bodies and posterior elements is noted. The atlantoaxial joint and craniovertebral articulations are normal without evidence of subluxation. There is no prevertebral soft tissue swelling. Emphysematous changes of the lung flowers visualized portions of the thyroid are unremarkable. IMPRESSION: 1. No acute visible fracture or dislocation. 2. Grade 1-2 anterolisthesis of C3 on C4. 3. Grade 1 anterolisthesis of C4 on C5 and C7 on T1. 4. Grade 1 retrolisthesis of C5 on C6. 5. Multilevel degenerative changes.
[2023-04-23 07:09] VITALS: BP 108/69; BP 96/70; PULSE 50; PULSE 73; RESP 18; TEMP 36.5; O2SAT 97; O2SAT 99; BMI 14.0
--- NOTE | 2023-04-23 07:15 | ECG_ITS ---
Test Reason : syncope Blood Pressure : / mmHG Vent. Rate : 070 BPM Atrial Rate : 070 BPM P-R Int : 134 ms QRS Dur : 072 ms QT Int : 416 ms P-R-T Axes : 086 044 084 degrees QTc Int : 449 ms Normal sinus rhythm Low voltage QRS Borderline ECG When compared with ECG of 17-MAR-2023 18:08, No significant change was found Referred By: Andreina Call Electronically Signed By:BJ FRIAS MD
--- NOTE | 2023-04-23 07:18 | PC.NURSE ---
Sister Maira notified per patients request that patient had a fall and is in the ER. Maira stating she will call brother paul
--- NOTE | 2023-04-23 07:35 | ED.SYNCOPE ---
HPI - Syncope General Chief Complaint: Syncope Stated Complaint: syncope Time Seen by Provider: 04/23/23 07:12 Source: patient Mode of arrival: EMS History of Present Illness HPI narrative: 62-year-old female with a history of schizophrenia presents via EMS after she states she went to the laundry room this morning because she did not want to be inside of her apartment and was sitting and then states that she fell, hit her head and woke up on the ground. She denies any prodrome of dizziness/palpitations/shortness of breath. Related Data Previous Rx's Medication Instructions Recorded cephalexin 500 mg capsule 500 mg PO BID 5 days #10 caps 04/23/23 Allergies Allergy/AdvReac Type Severity Reaction Status Date / Time No Known Allergies Allergy Verified 03/16/23 17:15 Review of Systems Review of Systems: Pertinent positives and negatives as stated in HPI PMFSH Past Medical History Source: nursing notes reviewed Social History Social History Alcohol intake: former Smoked in Last 30 Days: Yes Use of substances other than those prescribed or required for medical reasons: No Advance Directives: No Advance Directives Information Provided: No Physical Exam Vital Signs: Vital Signs: Last Vital Signs Temp 97.7 F 04/23/23 07:09 Pulse 84 04/23/23 09:15 Resp 18 04/23/23 07:09 BP 106/73 04/23/23 09:15 Pulse Ox 99 04/23/23 07:09 O2 Del Method Room Air 04/23/23 07:09 BMI result Body Mass Index 14.0 VITAL SIGNS: Reviewed. GENERAL: Cachectic, elderly, in no acute distress. HEAD: Normocephalic/atraumatic EYES: PERRLA, EOMI EARS: Ext canals without abnormality NOSE: Nares patent bilateral OROPHARYNX: no oral lesions noted, posterior pharynx clear NECK: C-collar in place without midline cervical spine tenderness to palpation or step-offs LUNGS: Normal breath sounds. No adventitious sounds or accessory muscle use. SpO2<99> CARDIOVASCULAR: Regular rate and rhythm without noted murmurs ABDOMEN: Soft, non-tender, non-distended with bowel sounds. MUSCULOSKELETAL: No tenderness, deformities, or effusions noted on gross inspection. EXTREMITIES: No cyanosis, clubbing or edema. SKIN: Inspection of the skin reveals no rashes NEUROLOGIC: Alert and oriented x 3. Strength and sensation to light touch were grossly intact x 4, no facial asymmetry, no pronator drift. Medical Decision Making Medical Decision Making [facility] Narrative: 0738: 62-year-old female with history and clinical presentation, DDX: Syncopal episode with head strike and will rule out infection, anemia, volume status, arrhythmia. I have reviewed all investigations and hematologic indices are negative for leukocytosis/anemia/thrombocytopenia. Chemistry in disease are negative for ANITHA/electrolyte or liver enzyme derangements. EKG does not demonstrate any acute arrhythmia, CT of the head negative for intracranial hemorrhage or mass effect and otherwise my interpretation is in agreement with radiology's impression. Cervical spine CT negative for fracture or subluxation. Patient offered fluids as orthostatics are mildly positive but urinalysis is also positive for urinary tract infection, patient will receive initial antibiotics here in the emergency room and be Differential Diagnosis Differential Diagnoses: The differential diagnosis associated with the presentation includes Please see the discussion above Admission/Observation Consideration of admission/observation: Escalation of care including admission/observation considered Please see the discussion above Lab Data [facility] Lab Attestation statement: I reviewed the patient's lab results. Please see the discussion above 04/23/23 08:02 04/23/23 08:02 Labs: Lab Results 04/23/23 04/23/23 Range/Units 08:02 09:11 WBC 7.8 (4.8-10.8) X10*3/uL RBC 4.55 (4.20-5.50) X10*6/uL Hgb 14.1 (12.0-16.0) g/dl Hct 41.6 (37.0-47.0) % MCV 91.4 (80.0-98.0) fL MCH 31.0 (27.0-33.0) pg MCHC 33.9 (31.0-35.0) g/dl RDW 12.7 (11.0-16.0) % Plt Count 328 (160-400) X10*3/uL MPV 8.2 L (9.4-12.3) fL Immature Gran % (Auto) 0.3 (0.0-0.4) % Neut % (Auto) 76.5 H (45-73) % Lymph % (Auto) 16.3 L (20-40) % [place] % (Auto) 6.0 (2-11) % Eos % (Auto) 0.5 (0-4) % Baso % (Auto) 0.4 (0-2) % Lymph # (Auto) 1.3 (1.2-4.9) X10*3/uL [place] # (Auto) 0.5 (0.1-1.2) X10*3/uL Eos # (Auto) 0.0 (0.0-0.4) X10*3/uL Baso # (Auto) 0.0 (0.0-0.2) X10*3/uL Abs Immat Gran (auto) 0.02 (0.00-0.03) X10*3/uL Absolute Neuts (auto) 6.0 (2.0-8.3) x10*3/uL Absolute Nucleated RBC 0.000 (0.0-0.012) X10*3/uL Nucleated RBC % (auto) 0.0 (0.0-0.2) /100WBC Sodium 139 (135-145) mmol/L Potassium 4.4 (3.3-5.1) mmol/L Chloride 104 (96-108) mmol/L Carbon Dioxide 29 (22-29) mmol/L Anion Gap 10 L (12-20) BUN 9 (9-16) mg/dL Creatinine 0.71 (0.5-1.4) mg/dL Estim Creat Clear Calc 44.3 Estimated GFR > 60 Random Glucose 99 (60-115) mg/dL Calcium 9.2 D (8.4-10.2) mg/dL Total Bilirubin 0.3 (0.0-1.0) mg/dL AST 13 (5-31) U/L ALT 7 (0-31) U/L Alkaline Phosphatase 64 (39-117) U/L Total Protein 6.6 (6.5-8.0) g/dL Albumin 4.0 (3.5-5.0) g/dL Urine Color Yellow Urine Appearance Clear Urine pH 6.5 (5.0-9.0) Ur Specific [place] 1.015 (1.005-1.025) Urine Protein Trace (Neg-Trace) mg/dL Urine Glucose (UA) Negative (Negative) mg/dL Urine Ketones Negative (Negative) mg/dL Urine Blood Negative (Negative) Urine Nitrite Negative (Negative) Ur Leukocyte Esterase Moderate (2+) H (Negative) Independent Interpretation I performed an independent interpretation of an: EKG Interpretation: Normal sinus rhythm, HR-70, no STEMI, DC/QRS/QTC is within normal limits. Radiology Impression Discussion of test interpretation with radiology: I have reviewed the radiologist's reading. Radiologist Impression: Please see the discussion above External Record Review External record reviewed: Outpatient record, Prior outpatient labs and Prior outpatient radiology Chronic Conditions Patient?s care impacted by: Other Schizophrenia Critical Care Time Critical Care Time Critical Care Time: Yes Total Critical Care Time: 30 Attestation: I personally attest to this time spent taking care of the patient. Discharge Plan Discharge Clinical Impression: Vasovagal syncope, Urinary tract infection Patient Disposition: Home, Self-Care Instructions: Urinary Tract Infection in Women (ED), Syncope (ED) Additional Instructions: 1. Resume all home medications as prescribed, continue to drink plenty of water. 2. You have been diagnosed with a urinary tract infection and you should complete the entire course of antibiotics. 3. You need to establish care with a primary care doctor at your earliest convenience. Return to the ER for any worsening symptoms. Prescriptions: New cephalexin 500 mg capsule 500 mg PO BID 5 Days Qty: 10 0RF
[2023-04-23 08:07] LABS: MANUAL DIFF FLAG NO
[2023-04-23 08:11] LABS: Basophils Percent Auto 0.4 % (0-2); Eosinophils Percent Auto 0.5 % (0-4); Hematocrit 41.6 % (37.0-47.0); Hemoglobin 14.1 g/dl (12.0-16.0); Imm Gran Abs Auto 0.02 X10*3/uL (0.00-0.03); Imm Gran Pct Auto 0.3 % (0.0-0.4); Lymphocytes Absolute Auto 1.3 X10*3/uL (1.2-4.9); Lymphocytes Percent Auto 16.3 % (20-40); Mean Corpuscular HGB Conc 33.9 g/dl (31.0-35.0); Mean Corpuscular Volume 91.4 fL (80.0-98.0); Mean Platelet Volume 8.2 fL (9.4-12.3); Monocytes Absolute Auto 0.5 X10*3/uL (0.1-1.2); Neutrophils Percent Auto 76.5 % (45-73); Platelet Count 328 X10*3/uL (160-400); Red Blood Count 4.55 X10*6/uL (4.20-5.50); Red Cell Distribution Width 12.7 % (11.0-16.0); White Blood Count 7.8 X10*3/uL (4.8-10.8)
[2023-04-23 08:34] LABS: Alanine Aminotransferase 7 U/L (0-31); Alkaline Phosphatase 64 U/L (39-117); Anion Gap 10 (12-20); Aspartate Amino Transferase 13 U/L (5-31); Bilirubin Total 0.3 mg/dL (0.0-1.0); Blood Urea Nitrogen 9 mg/dL (9-16); Calcium 9.2 mg/dL (8.4-10.2); Carbon Dioxide 29 mmol/L (22-29); Chloride 104 mmol/L (96-108); Creatinine Clr Calc Pharmacy 44.3; Estimated Glomerular Filt Rate > 60; Glucose Random 99 mg/dL (60-115); Potassium 4.4 mmol/L (3.3-5.1); Sodium 139 mmol/L (135-145); Total Protein 6.6 g/dL (6.5-8.0)
[2023-04-23 09:12] VITALS: BP 124/73; PULSE 84
[2023-04-23 09:13] VITALS: BP 91/62; PULSE 91
[2023-04-23 09:15] VITALS: BP 106/73; PULSE 84
[2023-04-23 09:20] LABS: Appearance Urine Clear; Color Urine Yellow; Glucose Urine UA Negative (Negative); Leukocyte Esterase Urine Moderate (2+) (Negative); Nitrite Urine Negative (Negative); PH 6.5 (5.0-9.0); Specific Gravity - Urine 1.015 (1.005-1.025); UMIC TRIGGER UACC YES; Urine Blood Negative (Negative); Urine Ketones Negative (Negative); Urine Protein Trace mg/dL (Neg-Trace)
[2023-04-23 09:32] LABS: Bacteria Urine None Seen (None Seen); Calcium Oxalate Crystals Urine Present; UACC Culture Trigger YES
[2023-04-23 09:33] LABS: RBC Urine 0-2 /HPF (0-2)
[2023-04-23] MEDS: cephALEXin 500 MG CAPSULE PO (10:03)
== END 2023-04-23 10:34 | disposition home or self-care (01) ==
PROVIDERS: Emergency Provider Student in an Organized Health Care Education/Training Program
DX: S09.90XA Unspecified injury of head, initial encounter (principal); R55 Syncope and collapse; N39.0 Urinary tract infection, site not specified; R94.31 Abnormal electrocardiogram [ECG] [EKG]; R51.9 Headache, unspecified; M54.2 Cervicalgia; W01.10XA Fall on same level from slipping, tripping and stumbling with subsequent striking against unspecified object, initial encounter; Y93.9 Activity, unspecified; Y92.9 Unspecified place or not applicable; Y99.8 Other external cause status; Z79.899 Other long term (current) drug therapy
CPT/HCPCS: 36415; 70450; 72125; 80053; 81001; 85025; 87086; 93005; 99284; 99285

== ENCOUNTER → 2023-04-23 07:15 | Outpatient (BNV) | payer MEDICARE, MEDICAID, SELFPAY | PROVIDERS: Emergency Provider Student in an Organized Health Care Education/Training Program; Visit Provider Internal Medicine Cardiovascular Disease | DX: R55 Syncope and collapse (principal) | CPT/HCPCS: 93010 ==

== ENCOUNTER 2023-07-18 10:28 | Outpatient (REF) | payer MEDICARE, MEDICAID, SELFPAY ==
[2023-07-18 11:00] LABS: MANUAL DIFF FLAG NO
[2023-07-18 11:03] LABS: Basophils Percent Auto 0.3 % (0-2); Eosinophils Percent Auto 0.1 % (0-4); Hematocrit 44.6 % (37.0-47.0); Hemoglobin 15.1 g/dl (12.0-16.0); Imm Gran Abs Auto 0.03 X10*3/uL (0.00-0.03); Imm Gran Pct Auto 0.4 % (0.0-0.4); Lymphocytes Absolute Auto 1.6 X10*3/uL (1.2-4.9); Lymphocytes Percent Auto 20.6 % (20-40); Mean Corpuscular HGB Conc 33.9 g/dl (31.0-35.0); Mean Corpuscular Hemoglobin 31.8 pg (27.0-33.0); Mean Corpuscular Volume 93.9 fL (80.0-98.0); Mean Platelet Volume 8.2 fL (9.4-12.3); Monocytes Absolute Auto 0.6 X10*3/uL (0.1-1.2); Monocytes Percent Auto 7.2 % (2-11); Neutrophils Absolute Auto 5.7 x10*3/uL (2.0-8.3); Neutrophils Percent Auto 71.4 % (45-73); Platelet Count 403 X10*3/uL (160-400); Red Blood Count 4.75 X10*6/uL (4.20-5.50); Red Cell Distribution Width 12.6 % (11.0-16.0)
[2023-07-18 11:41] LABS: Alanine Aminotransferase 9 U/L (0-31); Albumin Level 4.6 g/dL (3.5-5.0); Alkaline Phosphatase 63 U/L (39-117); Anion Gap 15 (12-20); Aspartate Amino Transferase 16 U/L (5-31); Bilirubin Total 0.4 mg/dL (0.0-1.0); Blood Urea Nitrogen 14 mg/dL (9-16); Carbon Dioxide 27 mmol/L (22-29); Chloride 101 mmol/L (96-108); Estimated Glomerular Filt Rate > 60; Glucose Random 108 mg/dL (60-115); Potassium 4.7 mmol/L (3.3-5.1); Sodium 138 mmol/L (135-145); Total Protein 7.4 g/dL (6.5-8.0)
== END 2023-07-18 10:29 | disposition home or self-care (01) ==
LOC: HO.10HDL 10:28
PROVIDERS: Visit Provider Internal Medicine
DX: E46 Unspecified protein-calorie malnutrition (principal); F21 Schizotypal disorder; F41.8 Other specified anxiety disorders; N30.01 Acute cystitis with hematuria
CPT/HCPCS: 36415; 80053; 84443; 85025; 87086; 87088; 87186

== ENCOUNTER 2024-12-29 13:48 | Emergency (ER) | payer MEDICARE, MEDICAID, SELFPAY ==
--- NOTE | ~2024-12-29 | XR_ITS ---
CLINICAL HISTORY: Shortness of breath rule out pneumonia 2 view chest x-ray Comparison: CT/CT/SR - CT CHEST WITHOUT IV CONTRAST - 03/17/23 16:53 EST Findings: 1.4 cm nodule seen at the left medial lung base corresponding to likely hamartoma seen on prior CT. There is no focal pneumonia. Heart size is normal. No acute fracture. There is hyperaeration compatible with COPD. IMPRESSION: 1. There is hyperaeration compatible with COPD. 2. 1.4 cm nodule seen at the left medial lung base corresponding to likely hamartoma seen on prior CT. This document has been electronically signed by: Maximiliano Ambriz MD on 01/05/2025 07:30:36
[2024-12-29 13:50] VITALS: BP 119/67; PULSE 97; RESP 16; TEMP 36.1; O2SAT 94; BMI 15.2
--- NOTE | 2024-12-29 13:50 | ED.GENADULT ---
HPI - General Adult General Chief complaint: Failure to Thrive Stated complaint: crisis Time Seen by Provider: 12/29/24 14:03 Source: patient, family (brother), RN notes reviewed and old records reviewed Mode of arrival: ambulatory Limitations: no limitations History of Present Illness ED Provider: Alejandra CONRAD narrative: Patient is a 64-year-old female with history of schizophrenia, smoking presenting to the emergency department with her brother who reports that he has brought her to the emergency department today because he feels she is unable to care for herself safely at home. He reports that he has discussed this with her primary care provider who advised him to bring the patient to the emergency department for evaluation. States she is not taking her medications as prescribed. He reports that she has very poor hygiene and frequent UTIs. He states that she sits alone at home in her apartment with just a small light over the oven on, does not have a TV or radio and rarely goes outside her apartment. States patient herself has a foul odor and that her genital area appears infected. He states that he does take her grocery shopping but this is really the only time she leaves the apartment. He also notes that she is eating poor quality foods such as sugary snacks and macaroni and cheese. He feels she has had a significant decline in mental status since their other sister from cancer last year. He notes that he has his to care for as well and is overwhelmed with trying to care for the patient. Patient denies any suicidal or homicidal ideation, auditory or visual hallucinations. She states that she doesn't want to speak to someone from the CARE team but is willing to do so. complaint: failure to thrive Related Data Home Medications ?Medication ?Instructions ?Recorded ?Confirmed No Known Home Meds 12/30/24 12/30/24 Allergies Allergy/AdvReac Type Severity Reaction Status Date / Time No Known Allergies Allergy Verified 12/29/24 13:52 Review of Systems Review of Systems: As per HPI Yes all other systems are reviewed and are negative Constitutional: Constitutional: Reports as per HPI [facility] Social History Social History Alcohol intake: former Physical Exam ED Vital Signs: Vital Signs - 24 hr 01/07/25 14:00 01/07/25 19:29 01/08/25 08:56 Temperature 99.3 F 98.2 F 97.9 F Pulse Rate 89 89 86 Respiratory Rate 14 20 15 Blood Pressure 105/61 113/76 120/67 Pulse Oximetry 94 93 96 Oxygen Delivery Method Room Air Room Air Room Air BMI result Body Mass Index 15.2 Vital signs have been reviewed and appear to be correct. Blood pressure normal. Heart rate normal. Respiratory rate normal. Temperature normal. Oxygen saturation normal. Const General: cooperative, no acute distress, poor hygiene and other (appears older than stated age) Nutritional Appearance: thin Orientation/consciousness: oriented to person, oriented to place, oriented to time and patient oriented x3 Limitations: no limitations HENMT Head: Yes normocephalic and Yes atraumatic Ears: external ears normal General nose exam: Normal external nose present Face and sinus: Yes face symmetric Mouth: oropharynx normal and moist mucous membranes Throat: Yes uvula midline Eyes Pupils: Equal, round and reactive pupils present Neck Neck: Yes normal visual inspection and Yes supple Resp Effort & Inspection: normal respiratory effort and able to speak in complete sentences Auscultation: clear to auscultation bilaterally Cardio Rate: regular rate Rhythm: regular rhythm Heart sounds: S1 normal heart sound present and S2 normal heart sound present GI Palpation (GI): Soft to palpation and nontender Auscultation: normoactive bowel sounds Other: patient with large amount of dried stool to genital area General: Yes no CVA tenderness Back/Spine/Pelvis Back: no CVA tenderness Skin General skin exam: elasticity normal and turgor normal Neuro General: oriented to person, oriented to place, oriented to time, patient oriented x3, moves all extremities, no focal motor deficits and CN's II-XI intact bilaterally Cranial nerves: Yes Equal, round and reactive pupils present Cognition (Neuro): normal cognition Extrem General: Yes full ROM, Yes no pedal edema and Yes no calf tenderness Psych Mental Status: mental status grossly normal Speech and movement: Clear speech present Affect: Sad affect present and Blunted affect present Attitude: cooperative Thought process: Normal thought process present Thought content: suicidality, no homicidality and no hallucinations Insight: Limited insight present (Psych) Judgement: Limited judgement present (Psych) Course Course Course Narrative: This is a Rapid Medical Examination (RME) performed by Elina Clark PA-C in triage. Full HPI, ROS, assessment and treatment plan per primary provider in the Main ED. Hx: 64 yo F here w/ brother d/t concerns of FTT, lack hygiene/care for herself, worsening since the of her sister 1 yr ago. brother went to her apartment today and became concerned about her living conditions - called PCP who advised to bring her here. states she is not compliant with her schizophrenia meds - saw her psychiatrist a year ago, got 90 day supply of meds and threw them away infront of her brother. was also diagnosed w/ UTI at that time and did not take the abx. Denies SI/HI. Plan: labs, UA Reevaluation(s) Reevaluation #1: 12/31/2024 08Akash Roberts NP: Physician observation continued. Psych recommending LTC, CM following for disposition. Vitals stable. Reevaluation #2: 01/01/2025 Time: 08:43 Provider: Josafat Arias PA-C: Physician observation continued. No acute events overnight. No complaints at this time. Patient was evaluated by Psychiatry on 12/30 which recommended LTC placement. Case management currently working on [facility] LTC application, currently awaiting for referral made to [facility] financial counseling. VS stable. We will continue to monitor as we await disposition Time: 08:43 Reevaluation #3: Time: 08:22 Date: 01/02/25 Provider: ARBEN Mcmanus Patient in physician observation for case management needs. No acute events reported overnight.? No current issues or complaints. VS stable. Awaiting case management disposition. We will continue to monitor. Time: 9:00 a.m. Date: 01/03/2025 Provider: Josafat Arias PA-C patient in physician observation for case management needs. No acute events reported by nursing overnight. No current complaints. Patient had psych eval and was determined to not have capacity. We are currently awaiting [facility] Senior Applications Engineer Care praneeth for CM to reveiw for LTC placement. we will continue to monitor as we await plan for disposition. 9:40 AM 01/04/2025 (Emi Roberts NP): Physician observation continued, no overnight events reported by nursing. BP slightly low this morning, will reassess in a few hours. Patient is asymptomatic. Case management following for disposition to long-term care. 1:59 PM 01/05/2025 (Emi Roberts SENIOR MILITARY ANALYST): Physician observation continued. Nursing reported to attending, Dr. Whitfield, this morning that patient was complaining of shortness of breath. Labs,EKG, CXR ordered, all of which were unremarkable. ED bronch protocol was ordered, however, patient declined breathing treatment offered by RT. I evaluated patient at bedside and she reports that her shortness of breath has resolved. Patient made aware that she can request breathing treatment if symptoms return. Case management following for disposition to LTC. Time: 08:29 a.m. Date: 01/06/2025 Provider: Josafat Arias PA-C Physican observation continued. No acute events reported by nursing overnight. No current complaints. Patient had psych eval and was determined to not have capacity. CM working with patients brother, Luis as he is trying to obtain [employer] for the patient. Patient needs SNF placement. Case management following. Will continue to monitor as we await disposition. 01/07/2025 0823 Raquel Jensen PA-C ---> Observation continues, case management continues to follow. Time: 08:26 Date: 01/08/25 Provider: ARBEN Mcmanus Patient in physician observation for case management needs. No acute events reported overnight.? No current issues or complaints. VS stable. Physician observation ended at 8:26AM. Pt will be d/c to [facility] via BLS at 11:00AM this morning. Pt is to continue all at-home medications. She is to continue Nameda (Memantine HCL) 5mg PO Daily as well as Risperdal (risperidone) 0.5mg BID PO Daily. Medications Administered Discontinued Medications Generic Name Dose Route Start Last Admin Trade Name Freq PRN Reason Stop Dose Admin Cefuroxime Axetil 250 mg 12/29/24 21:00 01/05/25 08:11 Cefuroxime Axetil 250 Mg Tablet PO 01/05/25 09:01 250 mg BID JAYLENE Administration Memantine 5 mg 01/04/25 09:00 01/08/25 08:20 Memantine Hcl 5 Mg Tablet PO 5 mg DAILY JAYLENE Administration Risperidone 0.5 mg 01/03/25 21:00 01/08/25 08:20 Risperidone 0.5 Mg Tablet PO 0.5 mg BID JAYLENE Administration Medical Decision Making Medical Decision Making [facility] Narrative: Patient is a 64-year-old female with history of schizophrenia, smoking presenting to the emergency department with her brother who reports that he has brought her to the emergency department today because he feels she is unable to care for herself safely at home. On exam patient is awake, A+Ox3, VS WNL, afebrile, normal neurological exam without focal deficits, physical exam findings as above. Given reported symptoms and physical exam findings, initial differential includes but is not limited to UTI, failure to thrive, medication noncompliance, schizophrennia, depression. Labs grossly within normal limits. UA notable for 1+ leukocytes, trace blood, 11-20 WBCs, trace bacteria. Given history of frequent UTIs, will treat with abx. Patient medically cleared for CARE team evaluation at this time. Consult to case management also ordered. Placed on physician observation pending CARE eval. Differential Diagnosis Differential Diagnoses: The differential diagnosis associated with the presentation includes as per [facility] Admission/Observation Consideration of admission/observation: Escalation of care including admission/observation considered Consult Healthcare Provider Management of the patient was discussed with: Behavioral Health Provider Lab Data [facility] Lab Attestation statement: I reviewed the patient's lab results. as per [facility] 01/05/25 06:48 01/05/25 06:48 Labs: Lab Results 12/29/24 12/29/24 01/03/25 Range/Units 14:27 16:30 12:52 WBC 9.1 (4.8-10.8) X10*3/uL RBC 5.25 (4.20-5.50) X10*6/uL Hgb 15.8 (12.0-16.0) g/dl Hct 48.6 H (37.0-47.0) % MCV 92.6 (80.0-98.0) fL MCH 30.1 (27.0-33.0) pg MCHC 32.5 (31.0-35.0) g/dl RDW 12.6 (11.0-16.0) % Plt Count 411 H (160-400) X10*3/uL MPV 8.8 L (9.4-12.3) fL Immature Gran % (Auto) 0.4 (0.0-0.4) % Neut % (Auto) 67.5 (45-73) % Lymph % (Auto) 22.9 (20-40) % [place] % (Auto) 7.8 (2-11) % Eos % (Auto) 1.0 (0-4) % Baso % (Auto) 0.4 (0-2) % Lymph # (Auto) 2.1 (1.2-4.9) X10*3/uL [place] # (Auto) 0.7 (0.1-1.2) X10*3/uL Eos # (Auto) 0.1 (0.0-0.4) X10*3/uL Baso # (Auto) 0.0 (0.0-0.2) X10*3/uL Abs Immat Gran (auto) 0.04 H (0.00-0.03) X10*3/uL Absolute Neuts (auto) 6.2 (2.0-8.3) x10*3/uL Absolute Nucleated RBC 0.000 (0.0-0.012) X10*3/uL Nucleated RBC % (auto) 0.0 (0.0-0.2) /100WBC ESR (0-20) MM/HR PT (11.2-13.5) SEC INR (0.9-1.1) APTT (26.7-34.1) SEC D-Dimer High Sensitivty NG/ML Sodium 143 (135-145) mmol/L Potassium 4.4 (3.3-5.1) mmol/L Chloride 103 (96-108) mmol/L Carbon Dioxide 30 H (22-29) mmol/L Anion Gap 14 (12-20) BUN 12 (9-16) mg/dL Creatinine 0.73 (0.5-1.4) mg/dL Estim Creat Clear Calc 45.6 Estimated GFR > 60 Random Glucose 97 (60-115) mg/dL Estimat Average Glucose 120 mg/dL Hemoglobin A1c % 5.8 (<6.0) % Lactic Acid (0.5-2.0) mmol/L Calcium 10.3 H (8.4-10.2) mg/dL Magnesium 2.3 (1.6-2.6) mg/dL Total Bilirubin 0.3 (0.0-1.0) mg/dL AST 25 (5-31) U/L ALT 18 (0-31) U/L Alkaline Phosphatase 91 (39-117) U/L Troponin I High Sens (<3.5-17.0) ng/L C-Reactive Protein (< or = 0.50) mg/dL NT-Pro-B Natriuret Pep (<300) pg/mL Total Protein 7.9 (6.5-8.0) g/dL Albumin 4.7 (3.5-5.0) g/dL Triglycerides 216 H (<150) mg/dL Cholesterol 228 H (<200) mg/dL LDL Cholesterol, Calc 124 H (<100) mg/dL HDL Cholesterol 61 (>40) mg/dL Lipase 38 (8-78) U/L TSH 0.73 (0.32-4.0) uIU/mL Urine Color Yellow Urine Appearance Clear Urine pH 6.5 (5.0-9.0) Ur Specific [place] 1.015 (1.005-1.025) Urine Protein Negative (Neg-Trace) mg/dL Urine Glucose (UA) Negative (Negative) mg/dL Urine Ketones Negative (Negative) mg/dL Urine Blood Trace H (Negative) Urine Nitrite Negative (Negative) Ur Leukocyte Esterase Small (1+) H (Negative) Urine RBC 6-10 H (0-2) /HPF Urine WBC 11-20 H (0-5) /HPF Ur Squamous Epith Cells 3-5 (0-2) /HPF Urine Bacteria Trace (None Seen) Hyaline Casts 0-2 (0-2) /LPF Salicylates < 5.0 L (15-30) mg/dL Urine Opiates Screen Not Detected (Not Detect) Ur Buprenorphine Scrn Not Detected (Not Detect) ng/mL Ur Oxycodone Screen Not Detected (Not Detect) ng/mL Urine Methadone Screen Not Detected (Not Detect) ng/mL Urine Fentanyl Screen Not Detected (Not Detect) Acetaminophen < 3 (<30) mcg/mL Ur Barbiturates Screen Not Detected (Not Detect) Ur Phencyclidine Scrn Not Detected (Not Detect) Ur Amphetamines Screen Not Detected (Not Detect) U Benzodiazepines Scrn Not Detected (Not Detect) Urine Cocaine Screen Not Detected (Not Detect) U Marijuana (THC) Screen Not Detected (Not Detect) Ethyl Alcohol < 10 mg/dL Influenza Type A (PCR) (Negative) Influenza Type B (PCR) (Negative) RSV RNA Qual (PCR) (Negative) SARS-CoV-2 RNA (RT-PCR) (Negative) 01/05/25 01/05/25 Range/Units 06:48 08:50 WBC 8.6 (4.8-10.8) X10*3/uL RBC 4.47 (4.20-5.50) X10*6/uL Hgb 13.2 (12.0-16.0) g/dl Hct 40.5 (37.0-47.0) % MCV 90.6 (80.0-98.0) fL MCH 29.5 (27.0-33.0) pg MCHC 32.6 (31.0-35.0) g/dl RDW 12.8 (11.0-16.0) % Plt Count 350 (160-400) X10*3/uL MPV 8.7 L (9.4-12.3) fL Immature Gran % (Auto) 0.4 (0.0-0.4) % Neut % (Auto) 60.0 (45-73) % Lymph % (Auto) 26.5 (20-40) % [place] % (Auto) 10.7 (2-11) % Eos % (Auto) 2.0 (0-4) % Baso % (Auto) 0.4 (0-2) % Lymph # (Auto) 2.3 (1.2-4.9) X10*3/uL [place] # (Auto) 0.9 (0.1-1.2) X10*3/uL Eos # (Auto) 0.2 (0.0-0.4) X10*3/uL Baso # (Auto) 0.0 (0.0-0.2) X10*3/uL Abs Immat Gran (auto) 0.03 (0.00-0.03) X10*3/uL Absolute Neuts (auto) 5.2 (2.0-8.3) x10*3/uL Absolute Nucleated RBC 0.000 (0.0-0.012) X10*3/uL Nucleated RBC % (auto) 0.0 (0.0-0.2) /100WBC ESR 14 (0-20) MM/HR PT 11.2 (11.2-13.5) SEC INR 0.9 (0.9-1.1) APTT 26.4 L (26.7-34.1) SEC D-Dimer High Sensitivty < 150 NG/ML Sodium 139 (135-145) mmol/L Potassium 4.5 (3.3-5.1) mmol/L Chloride 109 H (96-108) mmol/L Carbon Dioxide 27 (22-29) mmol/L Anion Gap 8 L (12-20) BUN 22 H (9-16) mg/dL Creatinine 0.58 (0.5-1.4) mg/dL Estim Creat Clear Calc 57.5 Estimated GFR > 60 Random Glucose 99 (60-115) mg/dL Estimat Average Glucose mg/dL Hemoglobin A1c % (<6.0) % Lactic Acid 1.3 (0.5-2.0) mmol/L Calcium 8.8 D (8.4-10.2) mg/dL Magnesium 2.2 (1.6-2.6) mg/dL Total Bilirubin 0.2 (0.0-1.0) mg/dL AST 21 (5-31) U/L ALT 15 (0-31) U/L Alkaline Phosphatase 73 (39-117) U/L Troponin I High Sens < 2.7 (<3.5-17.0) ng/L C-Reactive Protein < 0.10 (< or = 0.50) mg/dL NT-Pro-B Natriuret Pep 48.7 (<300) pg/mL Total Protein 6.2 L (6.5-8.0) g/dL Albumin 3.7 (3.5-5.0) g/dL Triglycerides (<150) mg/dL Cholesterol (<200) mg/dL LDL Cholesterol, Calc (<100) mg/dL HDL Cholesterol (>40) mg/dL Lipase 50 (8-78) U/L TSH (0.32-4.0) uIU/mL Urine Color Yellow Urine Appearance Clear Urine pH 5.5 (5.0-9.0) Ur Specific [place] 1.025 (1.005-1.025) Urine Protein Negative (Neg-Trace) mg/dL Urine Glucose (UA) Negative (Negative) mg/dL Urine Ketones Negative (Negative) mg/dL Urine Blood Negative (Negative) Urine Nitrite Negative (Negative) Ur Leukocyte Esterase Negative (Negative) Urine RBC (0-2) /HPF Urine WBC (0-5) /HPF Ur Squamous Epith Cells (0-2) /HPF Urine Bacteria (None Seen) Hyaline Casts (0-2) /LPF Salicylates (15-30) mg/dL Urine Opiates Screen (Not Detect) Ur Buprenorphine Scrn (Not Detect) ng/mL Ur Oxycodone Screen (Not Detect) ng/mL Urine Methadone Screen (Not Detect) ng/mL Urine Fentanyl Screen (Not Detect) Acetaminophen (<30) mcg/mL Ur Barbiturates Screen (Not Detect) Ur Phencyclidine Scrn (Not Detect) Ur Amphetamines Screen (Not Detect) U Benzodiazepines Scrn (Not Detect) Urine Cocaine Screen (Not Detect) U Marijuana (THC) Screen (Not Detect) Ethyl Alcohol mg/dL Influenza Type A (PCR) NEGATIVE (Negative) Influenza Type B (PCR) NEGATIVE (Negative) RSV RNA Qual (PCR) NEGATIVE (Negative) SARS-CoV-2 RNA (RT-PCR) NEGATIVE (Negative) External Record Review External record reviewed: Inpatient record, Office record and Outpatient record Discharge Plan Discharge Clinical Impression: Adult failure to thrive, Unable to make decisions about medical treatment due to impaired mental capacity, Schizophrenia with prominent negative symptoms, Impaired judgment, Impaired insight, Recurrent UTI UTI (urinary tract infection) Qualifiers: Indwelling urinary catheter type: unspecified Encounter type: initial encounter Patient Disposition: Xfer Inpatient Rehab Fac Transfer Details: TO [facility] GAYLE WEAVER ACCEPTING Instructions: Urinary Tract Infection in Women (ED), Failure to Thrive in Older Adults (ED) Additional Instructions: You were seen in the emergency department and you did not meet medical admission criteria. You were already treated for urinary tract infection. Please continue all at-home medications as prescribed. If any new or worsening symptoms occur including but not limited to severe chest pain, shortness of breath, please seek emergent care. Prescriptions: No Action No Known Home Meds Referrals: Merrill Vazquez [Outside] Sue Parra MD [Primary Care Provider, Internal Medicine] Discharge Date/Time: 01/08/25 11:10 Print Language: Lithuanian
[2024-12-29 14:31] LABS: MANUAL DIFF FLAG NO
[2024-12-29 14:42] LABS: Hematocrit 48.6 % (37.0-47.0); Hemoglobin 15.8 g/dl (12.0-16.0); Imm Gran Abs Auto 0.04 X10*3/uL (0.00-0.03); Imm Gran Pct Auto 0.4 % (0.0-0.4); Lymphocytes Absolute Auto 2.1 X10*3/uL (1.2-4.9); Mean Corpuscular HGB Conc 32.5 g/dl (31.0-35.0); Mean Corpuscular Hemoglobin 30.1 pg (27.0-33.0); Mean Corpuscular Volume 92.6 fL (80.0-98.0); NRBC Abs Auto 0.000 X10*3/uL (0.0-0.012); NRBC Pct Auto 0.0 /100WBC (0.0-0.2); Platelet Count 411 X10*3/uL (160-400); Red Blood Count 5.25 X10*6/uL (4.20-5.50); White Blood Count 9.1 X10*3/uL (4.8-10.8)
[2024-12-29 15:01] LABS: Alanine Aminotransferase 18 U/L (0-31); Albumin Level 4.7 g/dL (3.5-5.0); Alkaline Phosphatase 91 U/L (39-117); Anion Gap 14 (12-20); Aspartate Amino Transferase 25 U/L (5-31); Blood Urea Nitrogen 12 mg/dL (9-16); Calcium 10.3 mg/dL (8.4-10.2); Carbon Dioxide 30 mmol/L (22-29); Chloride 103 mmol/L (96-108); Creatinine Clr Calc Pharmacy 45.6; Estimated Glomerular Filt Rate > 60; Lipase 38 U/L (8-78); Magnesium 2.3 mg/dL (1.6-2.6); Potassium 4.4 mmol/L (3.3-5.1); Sodium 143 mmol/L (135-145); Total Protein 7.9 g/dL (6.5-8.0)
[2024-12-29 15:03] LABS: Acetaminophen LAB < 3 mcg/mL (<30); Salicylate < 5.0 mg/dL (15-30)
--- NOTE | 2024-12-29 15:20 | PC.NURSE ---
pt comes in with brother who is concerned that pt is not taking care of herself. He states she hasnt been taking her medications. Pt denies SI and HI.
[2024-12-29 16:35] LABS: Appearance Urine Clear; Glucose Urine UA Negative (Negative); PH 6.5 (5.0-9.0); Specific Gravity - Urine 1.015 (1.005-1.025); UMIC TRIGGER UACC YES
[2024-12-29 16:40] LABS: UACC Culture Trigger YES
[2024-12-29 17:04] LABS: Cannabinoid Screen Urine Not Detected (Not Detect)
[2024-12-29 18:30] VITALS: BP 132/74; PULSE 83; RESP 16; TEMP 36.2; O2SAT 91
[2024-12-30 05:18] VITALS: BP 120/68; PULSE 82; RESP 18; TEMP 36.5; O2SAT 94
--- NOTE | 2024-12-30 06:36 | PC.NURSE ---
Assumed care of patient at 1900 in ED OVF. Patient alert and oriented x 3, pleasant, calm and cooperative. Ambulating with steady gait. Continent of urine. She is med compliant with her antibiotic. Patient to remain section 12 until psych consult today. Report given to Amber NICOLAS at 0600 and patient transported back to main ED.
[2024-12-30 07:09] VITALS: BP 104/68; PULSE 77; RESP 16; O2SAT 93
--- NOTE | 2024-12-30 08:23 | MHC.CM.ED ---
Received case management consult over the weekend. Care Team assessment recommended psych consult. CM consul deferred until psych consult completed. Continue to monitor for d/c needs.
[2024-12-30 10:39] VITALS: BP 112/71; PULSE 89; TEMP 36.5; O2SAT 92
--- NOTE | 2024-12-30 12:29 | P.CNPS_ITS ---
History of Present Illness Date of Service: 12/30/2024 Chief Complaint: crisis Reason for Consult: unable to care for herself. HPI Narrative: Ms. Witt is a 64 year-old with hx of schizophrenia who was brought by brother due to concern in terms of her ability to care for herself. She does not showered regularly and therefore she has recurrent UTI. Pt had been seen by this provider back in 04/2023 for similar concern. Pertient labs completed in ED include CBC mostly unremarkable. CMP without electrolyte abnormalities, BUN 12, Cr 0.73, creatinine clearance 45.6. Slightly elevated calcium. UA with blood, leukocites, trace of bacteria, pending culture. Pt was started on ceftin. Utox was negative. Pt seen in the ED. Pt is sitting in bed, in NAD. She reports her brother brought her, and asks this insurance underwriter sales to call him. She reports I don't know why I don't showered, I don't know. When asked if she has any concerns in terms of her ability to care for herself, she states no. BUt at the same time she reports she is mostly in bed and depends on others to get food, medication. She denies SI/HI. She also denies symptoms of depression. No overt delusional content noted but significant poverty of thought. She denies any physical symptoms but sitter reports she has been coughing quiet a bit. Past Psychiatric History: Inpt: several years at [facility] OP: none Past medication trials: unknown Diagnostics Vital Signs (24Hr): Vital Signs - 24 hr 12/29/24 13:50 12/29/24 18:30 12/30/24 05:18 Temperature 97.0 F 97.2 F 97.7 F Pulse Rate 97 83 82 Respiratory Rate 16 16 18 Blood Pressure 119/67 132/74 120/68 Pulse Oximetry 94 91 L 94 Oxygen Delivery Method Room Air Room Air Room Air 12/30/24 07:09 12/30/24 10:39 Temperature 97.7 F Pulse Rate 77 89 Respiratory Rate 16 Blood Pressure 104/68 112/71 Pulse Oximetry 93 92 Oxygen Delivery Method Room Air Room Air BMI result Body Mass Index 15.2 Labs 12/29/24 14:27 12/29/24 14:27 Labs: Laboratory Results - last 48 hr 11/16/25 11/16/25 14:27 16:30 WBC 9.1 RBC 5.25 Hgb 15.8 Hct 48.6 H MCV 92.6 MCH 30.1 MCHC 32.5 RDW 12.6 Plt Count 411 H MPV 8.8 L Immature Gran % (Auto) 0.4 Neut % (Auto) 67.5 Lymph % (Auto) 22.9 Angelina % (Auto) 7.8 Eos % (Auto) 1.0 Baso % (Auto) 0.4 Lymph # (Auto) 2.1 Angelina # (Auto) 0.7 Eos # (Auto) 0.1 Baso # (Auto) 0.0 Abs Immat Gran (auto) 0.04 H Absolute Neuts (auto) 6.2 Absolute Nucleated RBC 0.000 Nucleated RBC % (auto) 0.0 Sodium 143 Potassium 4.4 Chloride 103 Carbon Dioxide 30 H Anion Gap 14 BUN 12 Creatinine 0.73 Estim Creat Clear Calc 45.6 Estimated GFR > 60 Random Glucose 97 Calcium 10.3 H Magnesium 2.3 Total Bilirubin 0.3 AST 25 ALT 18 Alkaline Phosphatase 91 Total Protein 7.9 Albumin 4.7 Lipase 38 Urine Color Yellow Urine Appearance Clear Urine pH 6.5 Ur Specific [place] 1.015 Urine Protein Negative Urine Glucose (UA) Negative Urine Ketones Negative Urine Blood Trace H Urine Nitrite Negative Ur Leukocyte Esterase Small (1+) H Urine RBC 6-10 H Urine WBC 11-20 H Ur Squamous Epith Cells 3-5 Urine Bacteria Trace Hyaline Casts 0-2 Salicylates < 5.0 L Urine Opiates Screen Not Detected Ur Buprenorphine Scrn Not Detected Ur Oxycodone Screen Not Detected Urine Methadone Screen Not Detected Urine Fentanyl Screen Not Detected Acetaminophen < 3 Ur Barbiturates Screen Not Detected Ur Phencyclidine Scrn Not Detected Ur Amphetamines Screen Not Detected U Benzodiazepines Scrn Not Detected Urine Cocaine Screen Not Detected U Marijuana (THC) Screen Not Detected Ethyl Alcohol < 10 Mental Status Exam Mental Status Exam Narrative: Appearance: wearing hospital gown, thin, disheveled and malnourished, in NAD behavior: calm, superficially cooperative Psychomotor: no agitation or retardation noted Speech: mostly clear, regular rate/rhythm, soft volume, minimally spontaneous TP: poverty of thought TC:asking provider to call brother for further information Mood: okay, I'm not depressed Affect: constricted SI: none HI: none VH/AH: no overt signs Delusions: no overt delusional content Insight/judgment: impaired x 2 Memory/cog: alert, oriented to palce, siva, year not situation. Medications Medications Current Medications Cefuroxime Axetil (Cefuroxime Axetil 250 Mg Tablet) 250 mg PO BID JAYLENE Stop: 01/05/25 09:01 Last Admin: 12/30/24 10:11 Dose: 250 mg Allergies Allergies Allergy/AdvReac Type Severity Reaction Status Date / Time No Known Allergies Allergy Verified 12/29/24 13:52 Assessment & Plan Assessment & Plan (1) Schizophrenia: Status: Acute Code(s): F20.9 - Schizophrenia, unspecified Plan Ms. Witt is a 64 year-old woman with hx of schizophrenia who was brought by brother due to concern in terms of ability to care for herself. Pt does not present with psychosis or delusions, but significant negative symptoms of schizophrenia which are affecting her ability to care for herself. Such symptoms include abulia, which is inability to initiate any activity including activities of daily living that pt knows need to happend but able to complete them such as showering, getting out of bed. She also displays significant poverty of thought and does not seem to have the insight to see concerns that others see in terms of her living situation. She does not show capacity to make medical decisions. She needs more supports in the community to be safe in terms of regular nutrition and self care. PLAN 1. No symptoms that are expected to improve as main impairing symptoms at this time are related to negative symptoms of schizophrenia (abulia, socially withdrawn, impairments of executive function). No signs of acute psychosis and delusions. No need for IPLOC. 2. brother informed of this assessment. No HCP on file, but pt does have capacity to appoint HCP but not to make medical decisions. 3. can try low dose of risperidone 0.5mg po BID. may also benefit from namenda as sometimes can have some effect in negative symptoms. Total time managing care of this patient today ____ minutes.
--- NOTE | 2024-12-30 13:39 | MHC.CM.ED ---
Received case management consult overnight. Patient came to the ER due to failure to thrive. Cleared by Care Team. Cleared by Melody Cooper NP, who feels patient needs LTC placement. Attempted to meet with patient in regards to discharge planning. Patient currently sleeping. Spoke with patient's brother, Luis, via telephone at [phone]. Luis states patient has a HCP at Dr Parra's office. Luis does not feel patient can safely be home any longer and needs LTC placement. Patient's [employer] is not active. Information on [facility] LTC application and requirements explained. Luis will go to patient's bank today and request 5 years of bank statements. Patient gets social security, doesn't own property or a vehicle. Luis aware patient will stay in ER while [facility] LTC application can be completed. Referral made to Judi of [facility]. Continue to monitor for d/c needs.
[2024-12-30 15:50] VITALS: BP 120/63; PULSE 76; RESP 16; TEMP 36.2; O2SAT 93
--- NOTE | 2024-12-30 17:38 | PHA.MEDREC ---
Addendum entered by Trevor Noel PharmD 12/30/24 17:59: reviewed Original Note: Pharmacy Consult ? Medication Reconciliation Pharmacy has completed the medication reconciliation. Spoke with pt's brother (Luis [phone]) and he confirmed pt hasn't been taking any medications and has been refusing all her meds for a long time .
--- NOTE | 2024-12-30 17:38 | PC.NURSE ---
Patient eating dinner. Bed alarm on. Call wallace placed within reach.
[2024-12-30 20:28] VITALS: BP 137/71; PULSE 104; RESP 20; O2SAT 92
[2024-12-31 06:47] VITALS: BP 98/60; PULSE 82; RESP 20; TEMP 36.9; O2SAT 94
--- NOTE | 2024-12-31 09:03 | PC.NURSE ---
patient a&ox2, rr equal/non labored, lungs clear, pt can ambulate independently but has a stby assist due to flight risk, bed alarm on. vss, denies pain/discomfort, call wallace within reach, plan of care ongoing.
[2024-12-31 14:00] VITALS: BP 100/58; PULSE 72; RESP 15; TEMP 36.4; O2SAT 99
--- NOTE | 2024-12-31 19:17 | PC.NURSE ---
this RN assumed care of this pt @1900, pt noted to be laying semi fowlers, eyes closed, respirations even and unlabored, fall measures in place, no apparent distress noted at this time. call light provided for safety
--- NOTE | 2024-12-31 21:32 | PC.NURSE ---
pt SPO2 noted to be 90%, reassessment showed SPO2 between 91-92% on RA, pt denies SOB, respirations even and unlabored, pt refused o2 placement at this time stating I am alright
[2024-12-31 21:49] VITALS: BP 104/61; PULSE 79; RESP 16; TEMP 36.2; O2SAT 90
[2025-01-01 05:01] VITALS: BP 106/56; PULSE 80; RESP 16; TEMP 36.2; O2SAT 93
--- NOTE | 2025-01-01 12:27 | PC.NURSE ---
Assumed care of pt at 0700. Pt resting quietly in bed. Ambulates independently. FC. Takes pills whole. Pending LTC placement. VSS. NAD. Denies any complaints
[2025-01-01 12:57] VITALS: BP 108/69; PULSE 95; RESP 16; TEMP 37.1; O2SAT 97
--- NOTE | 2025-01-01 13:19 | MHC.EDTECH ---
Patient washed and changed
--- NOTE | 2025-01-01 14:32 | MHC.CM.ED ---
Patient remains in ER overflow. Bank statements brought by brother Luis. Currently meeting with Judi of [facility] [employer] [facility] to complete [facility] Care application. Continue to monitor for d/c needs.
[2025-01-02 05:31] VITALS: BP 97/56; PULSE 78; RESP 18; TEMP 36.4; O2SAT 93
--- NOTE | 2025-01-02 08:24 | PC.NURSE ---
Assumed care this am, pt. resting in bed quietly, alert and oriented x4, no complains of pain, ate breakfast, no issues reported.
[2025-01-02 09:36] VITALS: BP 110/65; PULSE 85; RESP 16; TEMP 36.9; O2SAT 94
--- NOTE | 2025-01-02 13:16 | MHC.CM.ED ---
Patient remains in ER overflow. No capacity per psych. [facility] will provide CM with a copy of [employer] [facility] Care application as soon as it is available. Copy of bank statements have already been obtained. Referral broadcasted within 15 miles at this time. Continue to monitor for d/c needs.
[2025-01-02 14:00] VITALS: BP 108/62; PULSE 80; RESP 14; TEMP 36.8; O2SAT 94
--- NOTE | 2025-01-02 16:06 | PC.NURSE ---
Assumed care of this patient at 1500, pt resting quietly in hospital bed at this time. No signs of acute distress noted. Pt's brother called while patient was sleeping wanting update/check in on pt, pt made aware brother called during awake periods.
--- NOTE | 2025-01-02 16:22 | PC.NURSE ---
During chart review - Psych consult had various med recommendations for patient during consult on 12/30 not ordered at this time, provider Savannah made aware.
[2025-01-02 16:25] VITALS: BP 96/62; PULSE 84; RESP 20; O2SAT 93
--- NOTE | 2025-01-03 | ECG_ITS ---
Test Reason : QTC PROLONGATION Blood Pressure : */* mmHG Vent. Rate : 80 BPM Atrial Rate : 80 BPM P-R Int : 118 ms QRS Dur : 74 ms QT Int : 344 ms P-R-T Axes : 80 38 83 degrees QTcB Int : 396 ms Normal sinus rhythm Nonspecific T wave abnormality Abnormal ECG When compared with ECG of 23-Apr-2023 07:54, Nonspecific T wave abnormality, worse in Anterior leads Referred By: Allison Freitas Electronically Signed By: AZAM VALERO
[2025-01-03 06:00] VITALS: BP 108/72; PULSE 77; RESP 16; TEMP 35.8; O2SAT 94
--- NOTE | 2025-01-03 06:22 | PC.NURSE ---
Assumed care of patient in ED OVF at 1900.? Patient is alert and oriented x 3, calm, pleasant, cooperative, lacks insight into situation. She is standby assist to the bathroom. Makes needs known. Bed in lowest setting, locked and alarmed. Call wallace within reach. Plan: [facility]TC[facility] pending.
--- NOTE | 2025-01-03 11:34 | MHC.CM.ED ---
Addendum entered by Risa Vargas 01/03/25 12:29: Copy of [facility] LTC application obtained and forwarded to [facility]. Original Note: Received notification that [facility] is able to offer a bed. Spoke with patient's brother/HCP, Luis, via telephone at [phone]. Luis agreeable to bed at [facility]. Luis aware admission would most likely not be before Monday. Patient will require [facility] Level 2 and [facility] approval from [employer]. T/W will complete submit for these, provide copies to [facility] and [facility]. Continue to monitor for d/c needs.
--- NOTE | 2025-01-03 11:40 | HO.HCP ---
Health Care Proxy Invocation Health Care Proxy Declaration: Allison Brothers, NP__, on the date cited below, have determined that, Gemma Witt, lacks the capacity to make or communicate, informed health care decision. This determination is made in accordance with accepted standards of medical judgment and pursuant to M.[place] c. 201[place], the [place] Health Care Proxy Law. The cause, nature, extent and probable duration of the patient's inapacity are described below: Cause:impaired judgment/insight into medical decisions, thought disorder affecting judgment. Nature: schizophrenia Extent:complete, not able to care for herself Probable Duration of Patient's Incapacity:Not expected to be regained.
--- NOTE | 2025-01-03 12:53 | MHC.CM.ED ---
Correction from previous CM notes: Psych recommending more services in the community. Per patient's brother/HCP, Luis, their sister from cancer about a year ago. Luis is in his 70's. He is not able to care for his sister. Patient refuses to care for herself. There is no other family that is available. Patient's [employer] is not active at this time. Patient does not have the ability to privately pay for care at home. Luis is working with [facility] Financial Counselor for [employer]. SNF placement is necessary for patient's safety at this time until a safe d/c plan can be found. Continue to monitor for d/c needs.
--- NOTE | 2025-01-03 12:59 | PC.NURSE ---
EKG obtained, tiger texted to ordering provider. Labs obtained and sent
[2025-01-03 13:09] VITALS: BP 103/59; PULSE 80; RESP 18; TEMP 36.8; O2SAT 95
[2025-01-03 13:24] LABS: Cholesterol 228 mg/dL (<200); HDL Cholesterol 61 mg/dL (>40); Triglycerides 216 mg/dL (<150)
[2025-01-03 20:09] VITALS: BP 98/59; PULSE 81; RESP 16; TEMP 36.6; O2SAT 94
--- NOTE | 2025-01-03 23:00 | PC.NURSE ---
assumed care @ 2300 - received patient in stable condition. sleeping at this time
--- NOTE | 2025-01-04 03:22 | PC.NURSE ---
pt sleeping. no distress at this time.
[2025-01-04 06:00] VITALS: BP 93/55; PULSE 71; RESP 16; TEMP 36.6; O2SAT 94
--- NOTE | 2025-01-04 08:38 | PC.NURSE ---
assumed care of pt at 0700. report received from Lisbeth NICOLAS. pt assisted to and from bathroom. ambulatory with a steady gait, one person nearby assist. pt ate breakfast tray, now resting comfortably in bed. resp even and unlabored. call wallace within reach.
--- NOTE | 2025-01-04 11:14 | PC.NURSE ---
Assumed care of patient at this time. Pt awake and alert, sitting at side of bed. Denies need for assistance.
[2025-01-04 14:00] VITALS: BP 111/62; PULSE 91; RESP 12; TEMP 37.2; O2SAT 94
[2025-01-04 20:37] VITALS: BP 104/61; PULSE 90; RESP 18; TEMP 36.5; O2SAT 92
[2025-01-05 05:06] VITALS: BP 101/54; PULSE 87; RESP 16; TEMP 36.3; O2SAT 94
[2025-01-05 05:14] VITALS: RESP 16
--- NOTE | 2025-01-05 05:17 | PC.NURSE ---
0500. Pt resting comfortably through out the night. Sleeping most of the shift. Patient vocalizing no discomforts at this time. Assessment as documented in EMAR. Pt alert and oriented able to make needs known and denies SI, or hallucinations. Bed in low position, locked. call button in patient's reach.
--- NOTE | 2025-01-05 06:23 | ECG_ITS ---
Test Reason : SOB Blood Pressure : */* mmHG Vent. Rate : 76 BPM Atrial Rate : 76 BPM P-R Int : 120 ms QRS Dur : 76 ms QT Int : 380 ms P-R-T Axes : 75 32 85 degrees QTcB Int : 427 ms Normal sinus rhythm Nonspecific T wave abnormality Abnormal ECG When compared with ECG of 03-Jan-2025 12:40, Inverted T waves have replaced nonspecific T wave abnormality in Anterior leads Referred By: Derek Parks Electronically Signed By: AZAM VALERO
--- NOTE | 2025-01-05 06:24 | HE.NUR.EV ---
Status Change: Patient observed to have episode of increase WOB at rest with a congested cough. LS clear but diminished throughout with a history of smoking. Pt reported feeling fine . Episode self limiting but became present again when patient requested to ambulate to bathroom. Pt observed having SOB with ambulation but O2 sats on RA maintaining at 94%. Patient denies respiratory distress and once in bed patient did report she like head of bed elevated. RR 20-24. Immediate Actions Taken:HOB elevated, assessment performed. VSS Notifications:Dr. Parks notified of observation and assessment. Further Monitoring and Treatment:Provider to place orders and continue to monitor.
[2025-01-05 06:58] LABS: MANUAL DIFF FLAG NO
[2025-01-05 07:05] LABS: Hematocrit 40.5 % (37.0-47.0); Hemoglobin 13.2 g/dl (12.0-16.0); Imm Gran Abs Auto 0.03 X10*3/uL (0.00-0.03); Imm Gran Pct Auto 0.4 % (0.0-0.4); Lymphocytes Absolute Auto 2.3 X10*3/uL (1.2-4.9); Mean Corpuscular HGB Conc 32.6 g/dl (31.0-35.0); Mean Corpuscular Hemoglobin 29.5 pg (27.0-33.0); Mean Corpuscular Volume 90.6 fL (80.0-98.0); NRBC Abs Auto 0.000 X10*3/uL (0.0-0.012); NRBC Pct Auto 0.0 /100WBC (0.0-0.2); Platelet Count 350 X10*3/uL (160-400); Red Blood Count 4.47 X10*6/uL (4.20-5.50); White Blood Count 8.6 X10*3/uL (4.8-10.8)
[2025-01-05 07:06] LABS: INTERNATIONAL NORM RATIO 0.9 (0.9-1.1); Prothrombin Time 11.2 SEC (11.2-13.5)
[2025-01-05 07:09] LABS: Partial Thromboplastin Time 26.4 SEC (26.7-34.1)
[2025-01-05 07:13] LABS: D Dimer High Sensitivity < 150 NG/ML
[2025-01-05 07:22] LABS: Alanine Aminotransferase 15 U/L (0-31); Albumin Level 3.7 g/dL (3.5-5.0); Alkaline Phosphatase 73 U/L (39-117); Anion Gap 8 (12-20); Aspartate Amino Transferase 21 U/L (5-31); Blood Urea Nitrogen 22 mg/dL (9-16); Calcium 8.8 mg/dL (8.4-10.2); Carbon Dioxide 27 mmol/L (22-29); Chloride 109 mmol/L (96-108); Creatinine Clr Calc Pharmacy 57.5; Estimated Glomerular Filt Rate > 60; Lipase 50 U/L (8-78); Magnesium 2.2 mg/dL (1.6-2.6); Potassium 4.5 mmol/L (3.3-5.1); Sodium 139 mmol/L (135-145); Total Protein 6.2 g/dL (6.5-8.0)
[2025-01-05 07:30] LABS: NT Pro B Type Natriuretic Pept 48.7 pg/mL (<300)
[2025-01-05 07:31] LABS: Troponin-I High Sensitivity < 2.7 ng/L (<3.5-17.0)
[2025-01-05 07:32] VITALS: BP 112/64; PULSE 79; RESP 16; TEMP 36.8; O2SAT 94
[2025-01-05 07:35] LABS: Resp Syncy Virus RNA Qual PCR NEGATIVE (Negative); SARS COV2 PCR INHOUSE NEGATIVE (Negative)
[2025-01-05 08:14] LABS: Erythrocyte Sedimentation Rate 14 MM/HR (0-20)
--- NOTE | 2025-01-05 08:52 | PC.NURSE ---
assumed care of pt at 0645. pt mostly alert and oriented. oriented to self/place/time/location but otherwise disoriented to reason why she is here. pt reoriented/agreeable w/ plan of care. vss and up to date. pt medicated per provider order. swallows pills whole w/ water w/o difficulty. ate 75% of breakfast. no difficulties noted. pt otherwise 1:1 stand-by assist OOB and to the restroom. pt voided moderate amount of clear/pale yellow/non-foul smelling urine. specimen obtained/sent to lab. no sob/wob noted during exertion. pt assisted back into bed/sitting on side of bed w/o difficulty. pt able to utilize call wallace w/o difficulty. able to make her needs known. otherwise offers no complaints. otherwise pending insurance authorization via . plan of care ongoing. call wallace placed within reach.
[2025-01-05 08:57] LABS: Appearance Urine Clear; Glucose Urine UA Negative (Negative); PH 5.5 (5.0-9.0); Specific Gravity - Urine 1.025 (1.005-1.025)
--- NOTE | 2025-01-05 09:32 | PC.RT ---
RT assessed pt per bronchodilator protocol. Pt scores a 4 due to smoking and diminished lung sounds. Pt is calm and cooperative resting in bed, no increased WOB or SOB. Pt states she does not want a breathing tx. RT educated pt on breathings treatments, pt refused x2. Provider and RN notified.
--- NOTE | 2025-01-05 09:40 | PC.NURSE ---
provider ordered ED bronch protocol. pt refused protocol via RT. pt remains in no apparent respiratory distress - no sob/wob noted. respirations remain even/unlabored. plan of care ongoing. call wallace placed within reach.
[2025-01-05 14:00] VITALS: BP 117/68; PULSE 82; RESP 16; TEMP 36.5; O2SAT 94
[2025-01-05 20:15] VITALS: BP 123/67; PULSE 90; RESP 18; TEMP 36.3; O2SAT 92
[2025-01-06 06:34] VITALS: BP 109/59; PULSE 78; RESP 16; TEMP 36.5; O2SAT 95
--- NOTE | 2025-01-06 11:53 | PC.NURSE ---
assumed care of patient at 0700, patient alert/oriented X3 and denies any pain/discomfort at this time. pt remains on room air and denies any SOB or dyspnea on exertion. Pt awaiting auth for transfer to [facility]
[2025-01-06 13:37] VITALS: BP 104/58; PULSE 79; RESP 16; TEMP 36.5; O2SAT 94
[2025-01-07 08:11] VITALS: BP 105/67; PULSE 77; RESP 16; TEMP 37.2; O2SAT 95
--- NOTE | 2025-01-07 12:47 | MHC.CM.ED ---
Addendum entered by Risa Vargas 01/07/25 12:56: Anticipate d/c tomorrow. Brother/HCP will need to be available to sign admission paperwork. Original Note: [facility]. Continue to monitor for d/c needs.
--- NOTE | 2025-01-07 13:06 | MHC.CM.ED ---
Patient will d/c to [facility] via [facility] tomorrow 01/08 at 11am. Med [facility] with chart. Patient, brother/HCP Emi Smith RN and Raquel THEODORE aware. Continue to monitor for d/c needs.
[2025-01-07 14:00] VITALS: BP 105/61; PULSE 89; RESP 14; TEMP 37.4; O2SAT 94
[2025-01-07 19:29] VITALS: BP 113/76; PULSE 89; RESP 20; TEMP 36.8; O2SAT 93
--- NOTE | 2025-01-08 08:00 | PC.NURSE ---
[facility]
[2025-01-08 08:56] VITALS: BP 120/67; PULSE 86; RESP 15; TEMP 36.6; O2SAT 96
== END 2025-01-08 11:10 ==
PROVIDERS: Emergency Medicine Emergency Medical Services; Physician Assistant Medical; Social Worker; Emergency Provider Emergency Medicine; PCP Internal Medicine
DX: F20.89 Other schizophrenia (principal); R62.7 Adult failure to thrive; F17.210 Nicotine dependence, cigarettes, uncomplicated; N39.0 Urinary tract infection, site not specified; R06.02 Shortness of breath; R94.31 Abnormal electrocardiogram [ECG] [EKG]; R07.89 Other chest pain; Z03.818 Encounter for observation for suspected exposure to other biological agents ruled out; E06.3 Autoimmune thyroiditis; Z68.1 Body mass index [BMI] 19.9 or less, adult; Z91.148 Patient's other noncompliance with medication regimen for other reason; Z51.81 Encounter for therapeutic drug level monitoring; Z87.440 Personal history of urinary (tract) infections; Z13.29 Encounter for screening for other suspected endocrine disorder; Z13.1 Encounter for screening for diabetes mellitus
CPT/HCPCS: 36415; 71046; 80053; 80061; 80143; 80179; 80307; 81001; 81003; 83036; 83605; 83690; 83735; 83880; 84443; 84484; 85025; 85379; 85610; 85652; 85730; 86140; 87040; 87086; 87637; 93005; 99285; S9485

== ENCOUNTER → 2024-12-29 14:43 | Outpatient (BNV) | payer MEDICARE, MEDICAID, SELFPAY | PROVIDERS: Emergency Provider Emergency Medicine; PCP Internal Medicine; Visit Provider Social Worker | DX: F20.9 Schizophrenia, unspecified (principal) | CPT/HCPCS: 99285 ==

== ENCOUNTER → 2025-01-03 12:40 | Outpatient (BNV) | payer MEDICARE, MEDICAID, SELFPAY | PROVIDERS: Emergency Provider Emergency Medicine; PCP Internal Medicine; Visit Provider Internal Medicine | DX: R94.31 Abnormal electrocardiogram [ECG] [EKG] (principal); Z13.6 Encounter for screening for cardiovascular disorders | CPT/HCPCS: 93010 ==

== ENCOUNTER → 2025-01-05 06:23 | Outpatient (BNV) | payer MEDICARE, MEDICAID, SELFPAY | PROVIDERS: Emergency Provider Emergency Medicine; PCP Internal Medicine; Visit Provider Internal Medicine | DX: R94.31 Abnormal electrocardiogram [ECG] [EKG] (principal); R06.02 Shortness of breath | CPT/HCPCS: 93010 ==